=== PATIENT | female | born 1955 | race Caucasian/White ===

== ENCOUNTER 2020-09-06 17:00 | Outpatient (RCR) | payer OTHER, MEDICARE, SELFPAY | END 2020-09-29 10:42 | disposition home or self-care (01) | LOC: HO.PTCHIC 17:00 | PROVIDERS: PCP Internal Medicine; Visit Provider Internal Medicine | DX: M25.512 Pain in left shoulder (principal) | CPT/HCPCS: 97110; 97140 ==

== ENCOUNTER 2020-11-11 09:55 | Outpatient (REF) | payer MEDICARE, SELFPAY | END 2020-11-11 09:56 | disposition home or self-care (01) | LOC: HO.LAB 09:55 | PROVIDERS: Visit Provider Internal Medicine | DX: Z20.822 Contact with and (suspected) exposure to COVID-19 (principal) | CPT/HCPCS: C9803; U0003 ==

== ENCOUNTER 2021-08-18 10:48 | Outpatient (REF) | payer MEDICARE, SELFPAY ==
--- NOTE | ~2021-08-18 | MM_ITS ---
EXAMINATION: MM SCREENING DIGITAL BREAST TOMOSYNTHESIS, BILATERAL CLINICAL INFORMATION: Screening. Asymptomatic. The lifetime risk of breast cancer based on the Tyrer-Cuzick Model is 3%. COMPARISON: Mammography: 09/29/2019, 02/25/2018, 04/02/2016 TECHNIQUE: Digital breast tomosynthesis is performed in both the craniocaudal and mediolateral oblique views along with computer-aided detection (CAD). Synthesized 2D images are generated from the tomosynthesis. Additional right CC view is provided. FINDINGS: There are scattered areas of fibroglandular density (ACR BI-RADS breast composition Category b). There are no significant masses, abnormal calcifications, or other abnormalities. There are scattered bilateral ductal secretory calcifications again noted. The axilla and skin contours are unremarkable. MM/MM tomosynthesis screening BI IMPRESSION: No mammographic evidence of malignancy. ASSESSMENT: BI-RADS 2: Benign RECOMMENDATION: Routine annual mammography screening. This patient's information was entered into a reminder system with a target due date for their next mammogram.
== END 2021-08-18 10:49 | disposition home or self-care (01) ==
LOC: HO.MAMMO 10:48
PROVIDERS: Visit Provider Advanced Practice Midwife
DX: Z12.31 Encounter for screening mammogram for malignant neoplasm of breast (principal)
CPT/HCPCS: 77063; 77067

== ENCOUNTER 2021-08-27 15:33 | Outpatient (REF) | payer MEDICARE, SELFPAY | END 2021-08-27 15:34 | disposition home or self-care (01) | LOC: HO.LAB 15:33 | PROVIDERS: Visit Provider Internal Medicine | DX: Z20.822 Contact with and (suspected) exposure to COVID-19 (principal) | CPT/HCPCS: C9803; U0003; U0005 ==

== ENCOUNTER 2022-07-19 08:16 | Outpatient (REF) | payer MEDICARE, SELFPAY ==
--- NOTE | ~2022-07-19 | XR_ITS ---
EXAMINATION: XR LUMBOSACRAL SPINE CLINICAL INFORMATION: Lower back pain. COMPARISON: None TECHNIQUE: Three views of the lumbosacral spine. FINDINGS: Reverse S-shaped scoliotic curvature of the thoracolumbar spine. The lumbar lordosis is maintained. No acute fracture or subluxation. No loss of vertebral body height. Multilevel loss of intervertebral disc height with endplate osteophytes and endplate sclerosis, most severe within the lower thoracic and upper lumbar spine. Multilevel bilateral facet arthropathy. No concerning lytic or blastic osseous lesion. Phleboliths within the pelvis. Partially visualized Lap-Band and access port. XR/XR lumbar spine 2-3V IMPRESSION: Reverse S-shaped scoliotic curvature of the thoracolumbar spine. Prominent multilevel degenerative disc disease and bilateral facet arthropathy throughout the visualized thoracolumbar spine.
[2022-07-19 08:30] LABS: MANUAL DIFF FLAG NO
[2022-07-19 08:51] LABS: Basophils Absolute Auto 0.1 X10*3/uL (0.0-0.2); Basophils Percent Auto 0.7 % (0-2); Eosinophils Absolute Auto 0.5 X10*3/uL (0.0-0.4); Hematocrit 34.3 % (37.0-47.0); Hemoglobin 10.6 g/dl (12.0-16.0); Imm Gran Abs Auto 0.04 X10*3/uL (0.00-0.03); Imm Gran Pct Auto 0.5 % (0.0-0.4); Lymphocytes Absolute Auto 1.9 X10*3/uL (1.2-4.9); Lymphocytes Percent Auto 22.6 % (20-40); Mean Corpuscular HGB Conc 30.9 g/dl (31.0-35.0); Mean Corpuscular Hemoglobin 25.4 pg (27.0-33.0); Mean Corpuscular Volume 82.3 fL (80.0-98.0); Mean Platelet Volume 9.8 fL (9.4-12.3); Monocytes Absolute Auto 0.7 X10*3/uL (0.1-1.2); Monocytes Percent Auto 8.5 % (2-11); Neutrophils Absolute Auto 5.1 x10*3/uL (2.0-8.3); Neutrophils Percent Auto 61.7 % (45-73); Platelet Count 360 X10*3/uL (160-400); Red Blood Count 4.17 X10*6/uL (4.20-5.50); Red Cell Distribution Width 15.2 % (11.0-16.0); White Blood Count 8.2 X10*3/uL (4.8-10.8)
[2022-07-19 09:23] LABS: Alanine Aminotransferase 17 U/L (0-31); Albumin Level 4.1 g/dL (3.5-5.0); Alkaline Phosphatase 70 U/L (39-117); Anion Gap 17 (12-20); Aspartate Amino Transferase 16 U/L (5-31); Bilirubin Total 0.3 mg/dL (0.0-1.0); Blood Urea Nitrogen 21 mg/dL (9-16); Calcium 9.6 mg/dL (8.4-10.2); Carbon Dioxide 23 mmol/L (22-29); Chloride 104 mmol/L (96-108); Cholesterol 141 mg/dL; Estimated Glomerular Filt Rate 50; Glucose Random 120 mg/dL (60-115); HDL Cholesterol 37 mg/dL; LDL Cholesterol Calculated 76 mg/dl; Potassium 4.9 mmol/L (3.3-5.1); Sodium 139 mmol/L (135-145); Total Protein 7.2 g/dL (6.5-8.0); Triglycerides 144 mg/dL
[2022-07-19 09:44] LABS: Thyroid Stimulating Hormone 1.15 uIU/mL (0.32-4.0)
[2022-07-19 14:25] LABS: Creatinine Urine 132.58 mg/dL; Microalbum/Creatinine Ratio Ur 24.8 ug/mg cr
== END 2022-07-19 08:17 | disposition home or self-care (01) ==
LOC: HO.LAB 08:16
PROVIDERS: PCP Internal Medicine; Visit Provider Internal Medicine
DX: E11.9 Type 2 diabetes mellitus without complications (principal); E78.00 Pure hypercholesterolemia, unspecified; J45.20 Mild intermittent asthma, uncomplicated; M54.50 Low back pain, unspecified
CPT/HCPCS: 36415; 72100; 80053; 80061; 82043; 84443; 85025

== ENCOUNTER → 2022-10-08 14:47 | Outpatient (BNVA) | payer MEDICARE, SELFPAY | PROVIDERS: PCP Internal Medicine; Visit Provider Nurse Practitioner | DX: Z01.818 Encounter for other preprocedural examination (principal); N18.31 Chronic kidney disease, stage 3a; G47.33 Obstructive sleep apnea (adult) (pediatric) | CPT/HCPCS: 99202 ==

== ENCOUNTER 2022-10-17 16:00 | Outpatient (RCR) | payer MEDICARE, SELFPAY | END 2022-11-18 16:00 | disposition home or self-care (01) | LOC: HO.PTCHIC 16:00 | PROVIDERS: PCP Internal Medicine; Visit Provider Internal Medicine | DX: M54.50 Low back pain, unspecified (principal) | CPT/HCPCS: 97110; 97162; 97530 ==

== ENCOUNTER 2022-12-17 07:43 | Outpatient (REF) | payer MEDICARE, SELFPAY ==
--- NOTE | ~2022-12-17 | MM_ITS ---
EXAMINATION: MM SCREENING DIGITAL BREAST TOMOSYNTHESIS, BILATERAL CLINICAL INFORMATION: Screening. Asymptomatic. The lifetime risk of breast cancer based on the Tyrer-Cuzick Model is 3.0%. COMPARISON: Mammography: August 18, 2021 and studies dating back to February 27, 2015 TECHNIQUE: Digital breast tomosynthesis is performed in both the craniocaudal and mediolateral oblique views along with computer-aided detection (CAD). Synthesized 2D images are generated from the tomosynthesis. FINDINGS: There are scattered areas of fibroglandular density (ACR BI-RADS breast composition Category b). There are no significant masses, abnormal calcifications, or other abnormalities. MM/MM tomosynthesis screening BI IMPRESSION: No significant changes ASSESSMENT: BI-RADS 1: Negative RECOMMENDATION: Routine annual mammography screening. This patient's information was entered into a reminder system with a target due date for their next mammogram.
== END 2022-12-17 07:44 | disposition home or self-care (01) ==
LOC: HO.MAMMO 07:43
PROVIDERS: PCP Internal Medicine; Visit Provider Advanced Practice Midwife
DX: Z12.31 Encounter for screening mammogram for malignant neoplasm of breast (principal)
CPT/HCPCS: 77063; 77067

== ENCOUNTER 2023-02-03 09:56 | Day surgery (SDC) | payer MEDICARE, SELFPAY ==
[2023-01-29 14:55] VITALS: BMI 38.0
[2023-02-03] MEDS: Lactated Ringers 1,000 ML 50 ML IVCONT (10:03)
--- NOTE | 2023-02-03 10:18 | MHC.SHP ---
Pre-Procedural Eval Section A Date of Service: 02/03/23 The patient is an INPATIENT: No The History & Physical has been completed within 30 days and I have reviewed it.: No Section B Chief Complaint: screening Relevant Family History (Specify if Yes): No Relevant Social History: Tobacco Use ( former smoker) Present Medications: see Short Stay Collaborative assessment Medical History: Significant History (Obesity RAMIN NIDDM Asthma High cholesterol Decreased GFR Depression) History of Previous Operations: Relevant previous surgery/procedure and date(s) (Cholecystectomy Lap band surgery Colonoscopyo Tonsillectomy) Allergies: Allergies Allergy/AdvReac Type Severity Reaction Status Date / Time cephalexin [Keflex] Allergy Intermediate Rash Verified 02/03/23 10:03 ciprofloxacin [From CIPRO] Allergy Intermediate RASH Verified 02/03/23 10:03 Review of Systems Sugical H&P ROS: Negative: Constitution, Cardiovascular, Respiratory and Gastrointestinal Exam Surgical H&P Exam: Normal: Heart, Normal: Lungs, Normal: Extremities and Normal: Abdomen Plan Diagnosis/Plan: Unchanged I have reviewed the history and physical and performed a pertinent physical examination on my patient. No changes have occurred unless specified. Time Spent With Patient Time: Total time managing care of this patient today ____ minutes.
[2023-02-03 10:28] LABS: Glucose, Whole Blood 177 mg/dL (60-115)
[2023-02-03 10:32] VITALS: BP 150/82; PULSE 88; RESP 18; TEMP 36.6; O2SAT 96
--- NOTE | 2023-02-03 10:32 | HO.ANESPROP2 ---
[facility] Active Problems Active Problems: All Active Problems (Updated 01/29/23 @ 14:55 by Judi Vanegas RN) RAMIN (obstructive sleep apnea) (Acute) Diabetes (Acute) Asthma (Acute) High cholesterol (Acute) Depression (Acute) Chronic low back pain (Acute) Overactive bladder (Acute) Chronic kidney disease (CKD) stage G3a/A1, moderately decreased glomerular filtration rate (GFR) between 45-59 mL/min/1.73 square meter and albuminuria creatinine ratio less than 30 mg/g (Acute) Pre-op examination (Acute) Past Medical History Medical History Asthma Back pain Chronic renal insufficiency Diabetes Elevated cholesterol HTN (hypertension) Sleep apnea Functional capacity: independent ambulation Patient : No Surgical History Surgical History H/O colonoscopy History of cholecystectomy Hx of laparoscopic gastric banding Hx of tonsillectomy Social History Social History Do you presently have visiting nurse or other home services: No Alcohol intake: current Alcohol intake frequency: does not drink Patient Tobacco Use Status: Former Tobacco user Quit Date: age 37 Tobacco use type: Cigarette Years Smoked: 15 Use of substances other than those prescribed or required for medical reasons: Yes Substance Use Frequency: Daily Have you been hit, kicked, punched, or otherwise hurt by someone within the past year? If so, by whom?: No Are you DNR?: No Advance Directives: No (states daughter is HCP but form is at PCP office) Advance Directives Information Provided: Yes (brochure mailed) Advance Directives on File: No Recently lost weight without trying: No Eating poorly because of decreased appetite: No Nutrition Risks: No Nutritional Risk Poor oral hygiene: No (upper flipper partial-can be loose-may leave at home) Meds Allergies Allergy/AdvReac Type Severity Reaction Status Date / Time cephalexin [Keflex] Allergy Intermediate Rash Verified 02/03/23 10:03 ciprofloxacin [From CIPRO] Allergy Intermediate RASH Verified 02/03/23 10:03 Active Medications: Current Medications Lactated Ringer's (Lr) 1,000 mls @ 50 mls/hr IVCONT .Q20H VANIA Last Admin: 03/27/23 10:03 Dose: 50 mls/hr Home Medications Medication Instructions Recorded Confirmed Last Taken Type aspirin 81 mg tablet,delayed 81 mg PO BEDTIME 10/08/22 01/29/23 Unknown History release atorvastatin 40 mg tablet 40 mg PO BEDTIME 10/08/22 01/29/23 Unknown History cholecalciferol (vitamin D3) 50 50 mcg PO QAM 10/08/22 01/29/23 Unknown History mcg (2,000 unit) capsule ferrous sulfate 325 mg (65 mg 325 mg PO Q OTHER DAY 10/08/22 01/29/23 Unknown History iron) tablet (FeroSul) gabapentin 300 mg capsule 300 mg PO BEDTIME 10/08/22 01/29/23 Unknown History insulin glargine 100 unit/mL (3 32 unit subcut BEDTIME 10/08/22 01/29/23 Unknown History mL) subcutaneous pen (Lantus Solostar U-100 Insulin) lisinopril 5 mg tablet 5 mg PO QAM 10/08/22 01/29/23 Unknown History montelukast 10 mg tablet 10 mg PO BEDTIME 10/08/22 01/29/23 Unknown History omeprazole 20 mg capsule,delayed 20 mg PO QAM 10/08/22 01/29/23 Unknown History release oxybutynin chloride 5 mg tablet 5 mg PO QAM 10/08/22 01/29/23 Unknown History sertraline 50 mg tablet 50 mg PO QPM 10/08/22 01/29/23 Unknown History Exam Exam Date and Time: February 03, 2023 1032 Height,Weight and Vital Signs: Height 4 ft 9.5 in Weight 81 kg Pertinent Lab Results Pertinent Lab Results: Laboratory Tests 02/03/23 10:23 POC Glucose 177 H Airway Mallampati Class: III TM Dist: >3cm Neck ROM: Full Heart: RRR Lungs: CTA Assessment and Plan Final Anesthetic Review NPO: Yes ASA Class: III Final Preanesthetic Review: Meds/Allgs Chart Reviewed, Consent Obtained/Reviewed and Anes Risks/Benef Reviewed Patient Risk: Intermediate Procedure Risk: Low Anesthetic Plan Anesthetic Plan: MAC: Disposition: Standard PACU
--- NOTE | 2023-02-03 11:24 | PM.OP ---
Brief Operative Note Date of Service: 02/03/23 Pre-op diagnosis: colon cancer screening Post-op diagnosis: other ( colon polyps, diverticulosis) Procedure: COLONOSCOPY TILL CECUM WITH BIOPSIES, SNARE POLYPECTOMY, SUBMUCOSAL INJECTION AND HEMOCLIP PLACEMENT Surgeon: Loida Chapa MD Anesthesia: MAC Was an Loss Prevention Investigator used for this Procedure?: Yes Loss Prevention Investigator: Isaac Tomas Estimated blood loss (mL): 1 Pathology: other (A) Polyp Transverse Colon B) Polyp Sigmoid Colon 20cm) Condition: stable Disposition: PACU
--- NOTE | 2023-02-03 11:24 | W.PM.OPN ---
Operative Note Operative Note Date of Service: 02/03/23 Narrative: COLONOSCOPY TILL CECUM WITH BIOPSIES, SNARE POLYPECTOMY, SUBMUCOSAL INJECTION AND HEMOCLIP PLACEMENT Indication:? Colon cancer screening Endoscopist:? Loida Chapa MD Anesthesia Provider:?Dr Noland Anesthesia type:?MAC Consent: Indications for the procedure and potential complications of bleeding, perforation, reaction to medications and missed diagnosis were discussed with the patient and informed consent was obtained. Instrument: Olympus PCF H 190 L variable stiffness pediatric colonoscope Monitoring: Vital signs and clinical assessment, intermittent blood pressure monitoring, continuous EKG monitoring, Pulse oximetry and Carbon Dioxide monitoring were done throughout the procedure. Please see anesthesia flowsheet. Colon withdrawl time was 20 minutes. Procedure: The patient was placed in the left lateral decubitis position and pre-procedure medications were administered. After a digital rectal examination of the ano-rectum, the video colonoscope was inserted into the rectum and advanced through the colon to the cecum. The colonoscope was slowly withdrawn in a retrograde panoramic fashion and the colon mucosa was carefully examined including a retroflexed view of the rectum. Findings and interventions are described below. Procedure Difficulty: Without difficulty Findings: Terminal Ileum: Not evaluated Cecum: Normal Ascending Colon: Normal Transverse Colon: Three 12-20 mm sessile polyps - removed with a hot snare Descending Colon: moderate diverticulosis Sigmoid Colon: A 3 cms pedunculated polyp in the distal SC at 20 cms removed with a hot snare. Polypectomy site was closed with 1 hemoclip and marked by Sophia ink. Moderate diverticulosis Rectum: Normal Ano-rectum: Normal Colon preparation: Good Impression and Post Procedure Diagnosis: Colonoscopy Findings: Three medium sized and one large polyps removed Moderate diverticulosis seen in the left colon Plan: Await pathology results Patient has an appointment on 02/18/23 in the [facility] with Kate Colorado NP. Repeat Colonoscopy interval based on path results - in 1 year if polyps are adenomatous and 10 years if polyps are hyperplastic. Above findings were reviewed with the patient and colon polyps and diverticulosis handouts were given in the discharge area
[2023-02-03 12:21] VITALS: BP 113/68; PULSE 80; RESP 16; TEMP 36.3; O2SAT 99
[2023-02-03 12:36] VITALS: BP 104/77; PULSE 72; RESP 16; TEMP 36.3; O2SAT 99
--- NOTE | 2023-02-03 12:50 | HO.POSTANES ---
Post Anesthesia Evaluation Post Anesthesia Evaluation Vital Signs: Vital Signs Temp Pulse Resp BP Pulse Ox O2 Del Method 02/03/23 12:36 97.4 F 72 16 104/77 99 Room Air 02/03/23 12:21 97.4 F 80 16 113/68 99 Room Air 02/03/23 10:32 97.8 F 88 18 150/82 H 96 Room Air Anesthesia: Monitored Mental Status: Awake Nausea/Vomiting: None Hydration: Adequate Anesthesia-Related Issues: No Anes. Related Issues
== END 2023-02-03 14:16 | disposition home or self-care (01) ==
PROVIDERS: PCP Internal Medicine; Visit Provider Internal Medicine Gastroenterology
PROC: 0DJD8ZZ Inspection of Lower Intestinal Tract, Via Natural or Artificial Opening Endoscopic (ICD-10-PCS; CPT 45378; principal; 2023-02-03 11:00)
DX: Z12.11 Encounter for screening for malignant neoplasm of colon (principal); D12.3 Benign neoplasm of transverse colon; D12.5 Benign neoplasm of sigmoid colon; K57.30 Diverticulosis of large intestine without perforation or abscess without bleeding; G47.33 Obstructive sleep apnea (adult) (pediatric); J45.909 Unspecified asthma, uncomplicated; E78.00 Pure hypercholesterolemia, unspecified; E66.9 Obesity, unspecified; Z68.38 Body mass index [BMI] 38.0-38.9, adult; Z98.84 Bariatric surgery status; E11.22 Type 2 diabetes mellitus with diabetic chronic kidney disease; I12.9 Hypertensive chronic kidney disease with stage 1 through stage 4 chronic kidney disease, or unspecified chronic kidney disease; N18.31 Chronic kidney disease, stage 3a; Z79.4 Long term (current) use of insulin; Z79.82 Long term (current) use of aspirin; Z79.899 Other long term (current) drug therapy; Z99.89 Dependence on other enabling machines and devices; Z88.1 Allergy status to other antibiotic agents; Z90.49 Acquired absence of other specified parts of digestive tract; Z87.891 Personal history of nicotine dependence
CPT/HCPCS: 45385; 45381; 82947; 88305

== ENCOUNTER 2023-02-26 08:35 | Outpatient (REF) | payer MEDICARE, SELFPAY ==
[2023-02-26 09:00] LABS: MANUAL DIFF FLAG NO
[2023-02-26 09:18] LABS: Basophils Absolute Auto 0.1 X10*3/uL (0.0-0.2); Basophils Percent Auto 0.8 % (0-2); Eosinophils Absolute Auto 0.5 X10*3/uL (0.0-0.4); Eosinophils Percent Auto 6.4 % (0-4); Hematocrit 37.9 % (37.0-47.0); Hemoglobin 12.1 g/dl (12.0-16.0); Imm Gran Abs Auto 0.05 X10*3/uL (0.00-0.03); Imm Gran Pct Auto 0.7 % (0.0-0.4); Lymphocytes Absolute Auto 1.8 X10*3/uL (1.2-4.9); Lymphocytes Percent Auto 24.4 % (20-40); Mean Corpuscular HGB Conc 31.9 g/dl (31.0-35.0); Mean Corpuscular Hemoglobin 27.4 pg (27.0-33.0); Mean Corpuscular Volume 85.7 fL (80.0-98.0); Mean Platelet Volume 9.9 fL (9.4-12.3); Monocytes Absolute Auto 0.6 X10*3/uL (0.1-1.2); Monocytes Percent Auto 7.9 % (2-11); Neutrophils Absolute Auto 4.5 x10*3/uL (2.0-8.3); Neutrophils Percent Auto 59.8 % (45-73); Platelet Count 287 X10*3/uL (160-400); Red Blood Count 4.42 X10*6/uL (4.20-5.50); Red Cell Distribution Width 14.5 % (11.0-16.0); White Blood Count 7.5 X10*3/uL (4.8-10.8)
[2023-02-26 09:28] LABS: Estimated Average Glucose 200 mg/dL; Hemoglobin A1c % 8.6 %
[2023-02-26 09:53] LABS: Alanine Aminotransferase 19 U/L (0-31); Albumin Level 3.8 g/dL (3.5-5.0); Alkaline Phosphatase 86 U/L (39-117); Anion Gap 12 (12-20); Aspartate Amino Transferase 17 U/L (5-31); Bilirubin Total 0.3 mg/dL (0.0-1.0); Blood Urea Nitrogen 16 mg/dL (9-16); Calcium 9.2 mg/dL (8.4-10.2); Carbon Dioxide 27 mmol/L (22-29); Chloride 103 mmol/L (96-108); Estimated Glomerular Filt Rate 43; Glucose Random 183 mg/dL (60-115); Potassium 4.7 mmol/L (3.3-5.1); Sodium 137 mmol/L (135-145); Total Protein 6.8 g/dL (6.5-8.0)
[2023-02-26 13:34] LABS: Creatinine Urine 135.09 mg/dL; Microalbum/Creatinine Ratio Ur 34.7 ug/mg cr
== END 2023-02-26 08:36 | disposition home or self-care (01) ==
LOC: HO.LAB 08:35
PROVIDERS: PCP Internal Medicine; Visit Provider Internal Medicine
DX: E11.65 Type 2 diabetes mellitus with hyperglycemia (principal); Z79.4 Long term (current) use of insulin
CPT/HCPCS: 36415; 80053; 82043; 83036; 85025

== ENCOUNTER → 2023-03-05 15:01 | Outpatient (BNVA) | payer MEDICARE, SELFPAY | PROVIDERS: PCP Internal Medicine; Visit Provider Nurse Practitioner | DX: D36.9 Benign neoplasm, unspecified site (principal) | CPT/HCPCS: 99212 ==

== ENCOUNTER 2023-07-30 09:27 | Outpatient (REF) | payer MEDICARE, SELFPAY ==
[2023-07-30 14:25] LABS: MANUAL DIFF FLAG NO
[2023-07-30 14:37] LABS: Basophils Absolute Auto 0.1 X10*3/uL (0.0-0.2); Basophils Percent Auto 0.8 % (0-2); Eosinophils Absolute Auto 0.5 X10*3/uL (0.0-0.4); Eosinophils Percent Auto 6.4 % (0-4); Hematocrit 44.1 % (37.0-47.0); Hemoglobin 14.3 g/dl (12.0-16.0); Imm Gran Abs Auto 0.05 X10*3/uL (0.00-0.03); Imm Gran Pct Auto 0.6 % (0.0-0.4); Lymphocytes Absolute Auto 1.6 X10*3/uL (1.2-4.9); Lymphocytes Percent Auto 19.9 % (20-40); Mean Corpuscular HGB Conc 32.4 g/dl (31.0-35.0); Mean Corpuscular Hemoglobin 28.8 pg (27.0-33.0); Mean Corpuscular Volume 88.7 fL (80.0-98.0); Mean Platelet Volume 10.3 fL (9.4-12.3); Monocytes Absolute Auto 0.7 X10*3/uL (0.1-1.2); Monocytes Percent Auto 8.5 % (2-11); Neutrophils Percent Auto 63.8 % (45-73); Platelet Count 300 X10*3/uL (160-400); Red Blood Count 4.97 X10*6/uL (4.20-5.50); Red Cell Distribution Width 13.4 % (11.0-16.0); White Blood Count 7.8 X10*3/uL (4.8-10.8)
[2023-07-30 14:54] LABS: Alanine Aminotransferase 16 U/L (0-31); Alkaline Phosphatase 92 U/L (39-117); Anion Gap 12 (12-20); Aspartate Amino Transferase 18 U/L (5-31); Bilirubin Total 0.4 mg/dL (0.0-1.0); Blood Urea Nitrogen 18 mg/dL (9-16); Calcium 9.8 mg/dL (8.4-10.2); Carbon Dioxide 27 mmol/L (22-29); Chloride 106 mmol/L (96-108); Cholesterol 138 mg/dL (<200); Estimated Glomerular Filt Rate 50; Glucose Fasting 123 mg/dL (60-99); HDL Cholesterol 40 mg/dL (>40); LDL Cholesterol Calculated 77 mg/dL (<100); Potassium 4.4 mmol/L (3.3-5.1); Sodium 141 mmol/L (135-145); Total Protein 7.6 g/dL (6.5-8.0); Triglycerides 108 mg/dL (<150)
[2023-07-30 15:09] LABS: Creatinine Urine 73.82 mg/dL; Microalbum/Creatinine Ratio Ur 37.9 ug/mg cr (<30)
[2023-07-30 15:09] LABS: Thyroid Stimulating Hormone 1.08 uIU/mL (0.32-4.0)
== END 2023-07-30 09:28 | disposition home or self-care (01) ==
LOC: HO.CHCLDS 09:27
PROVIDERS: Visit Provider Internal Medicine
DX: E11.9 Type 2 diabetes mellitus without complications (principal); E78.00 Pure hypercholesterolemia, unspecified; J45.30 Mild persistent asthma, uncomplicated
CPT/HCPCS: 36415; 80053; 80061; 82043; 82570; 84443; 85025

== ENCOUNTER 2024-03-10 10:50 | Outpatient (REF) | payer MEDICARE, SELFPAY ==
[2024-03-10 15:08] LABS: Alanine Aminotransferase 17 U/L (0-31); Albumin Level 3.9 g/dL (3.5-5.0); Alkaline Phosphatase 72 U/L (39-117); Anion Gap 14 (12-20); Aspartate Amino Transferase 18 U/L (5-31); Bilirubin Total 0.5 mg/dL (0.0-1.0); Blood Urea Nitrogen 22 mg/dL (9-16); Calcium 9.3 mg/dL (8.4-10.2); Carbon Dioxide 26 mmol/L (22-29); Chloride 104 mmol/L (96-108); Estimated Glomerular Filt Rate 52; Glucose Fasting 98 mg/dL (60-99); Potassium 4.1 mmol/L (3.3-5.1); Sodium 140 mmol/L (135-145); Total Protein 7.4 g/dL (6.5-8.0)
== END 2024-03-10 10:51 | disposition home or self-care (01) ==
LOC: HO.CHCLDS 10:50
PROVIDERS: Visit Provider Internal Medicine
DX: N18.31 Chronic kidney disease, stage 3a (principal)
CPT/HCPCS: 36415; 80053

== ENCOUNTER 2024-03-29 11:05 | Outpatient (REF) | payer MEDICARE, SELFPAY ==
--- NOTE | ~2024-03-29 | XR_ITS ---
EXAMINATION: XR HIP, RIGHT CLINICAL INFORMATION: Osteoarthritis of the right hip COMPARISON: None available. TECHNIQUE: Two views of the right hip. FINDINGS: Minimal chondrocalcinosis no joint space narrowing. Surrounding bone unremarkable. Prominent arterial calcification. XR/XR hip RT min 2V IMPRESSION: 1. Minimal chondrocalcinosis. Otherwise No definite arthrosis 2. Calcific atherosclerotic disease.
== END 2024-03-29 11:06 | disposition home or self-care (01) ==
LOC: HO.XRAY 11:05
PROVIDERS: PCP Internal Medicine; Visit Provider Internal Medicine
DX: M54.50 Low back pain, unspecified (principal); M25.551 Pain in right hip
CPT/HCPCS: 73502

== ENCOUNTER 2024-04-16 07:25 | Day surgery (SDC) | payer MEDICARE, SELFPAY ==
--- NOTE | 2024-04-16 07:29 | MHC.SHP ---
Pre-Procedural Eval Section A - 24 Hr Update-Section A only Date of Service: 04/16/24 The patient is an INPATIENT: No The patient has been examined within 24 hours of the surgical procedure. The History & Physical has been completed within 30 days and I have reviewed it.: No Section B - Complete if H&P > 30 days Chief Complaint: Surveillance for colon polyps Relevant Family History (Specify if Yes): Yes Relevant Social History: Tobacco Use (Former smoker) Present Medications: see Short Stay Collaborative assessment Medical History: Significant History (Asthma Back pain Chronic renal insufficiency Diabetes Elevated cholesterol HTN (hypertension) Sleep apnea) History of Previous Operations: Relevant previous surgery/procedure and date(s) (H/O colonoscopy History of cholecystectomy Hx of laparoscopic gastric banding Hx of tonsillectomy) Allergies: Allergies Allergy/AdvReac Type Severity Reaction Status Date / Time cephalexin [Keflex] Allergy Intermediate Rash Verified 03/05/23 15:23 ciprofloxacin [From CIPRO] Allergy Intermediate RASH Verified 03/05/23 15:23 Review of Systems Sugical H&P ROS: Negative: Constitution, Cardiovascular, Respiratory and Gastrointestinal Exam Surgical H&P Exam: Normal: Heart, Normal: Lungs, Normal: Extremities and Normal: Abdomen Plan Diagnosis/Plan: Unchanged I have reviewed the history and physical and performed a pertinent physical examination on my patient. No changes have occurred unless specified. Time Spent With Patient Time: Total time managing care of this patient today ____ minutes.
[2024-04-16 07:35] VITALS: BMI 35.9
[2024-04-16] MEDS: Lactated Ringers 1,000 ML 100 ML IVCONT (07:43)
[2024-04-16 07:50] VITALS: BP 127/65; PULSE 80; RESP 18; TEMP 36.4; O2SAT 97
[2024-04-16 07:52] LABS: Glucose, Whole Blood 137 mg/dL (60-115)
--- NOTE | 2024-04-16 08:10 | P.CONAN_ITS ---
Documented by User: Alejandra Cabral NP 04/14/24 14:47 HPI - Anesthesia Eval Consult details Narrative: 69yo F for Colonoscopy PMFSH Active Problems Active Problems: All Active Problems Tubulovillous adenoma (Acute) RAMIN (obstructive sleep apnea) (Acute) Diabetes (Acute) Asthma (Acute) High cholesterol (Acute) Depression (Acute) Chronic low back pain (Acute) Overactive bladder (Acute) Chronic kidney disease (CKD) stage G3a/A1, moderately decreased glomerular filtration rate (GFR) between 45-59 mL/min/1.73 square meter and albuminuria creatinine ratio less than 30 mg/g (Acute) Pre-op examination (Acute) Past Medical History Medical History Asthma Back pain Chronic renal insufficiency Diabetes Elevated cholesterol HTN (hypertension) Sleep apnea Surgical History Surgical History H/O colonoscopy History of cholecystectomy Hx of laparoscopic gastric banding Hx of tonsillectomy Social History Social History Do you presently have visiting nurse or other home services: No Alcohol intake: current Alcohol intake frequency: does not drink Patient Tobacco Use Status: Former Tobacco user Tobacco use type: Cigarette Years Smoked: 15 Substance Use Frequency: Daily Are you DNR?: No Advance Directives: No Advance Directives Information Provided: Yes Nutrition Risks: No Nutritional Risk Meds Allergies Allergy/AdvReac Type Severity Reaction Status Date / Time cephalexin [Keflex] Allergy Intermediate Rash Verified 04/16/24 07:37 ciprofloxacin [From CIPRO] Allergy Intermediate RASH Verified 04/16/24 07:37 Home Medications ?Medication ?Instructions ?Recorded ?Confirmed ?Last Taken ?Type aspirin 81 mg tablet,delayed 81 mg PO BEDTIME 10/08/22 04/16/24 04/13/24 History release atorvastatin 40 mg tablet 40 mg PO BEDTIME 10/08/22 04/16/24 Unknown History cholecalciferol (vitamin D3) 50 50 mcg PO QAM 10/08/22 04/16/24 Unknown History mcg (2,000 unit) capsule ferrous sulfate 325 mg (65 mg 325 mg PO Q OTHER DAY 10/08/22 04/16/24 04/13/24 History iron) tablet (FeroSul) gabapentin 300 mg capsule 300 mg PO BEDTIME 10/08/22 04/16/24 Unknown History insulin glargine 100 unit/mL (3 32 unit subcut BEDTIME 10/08/22 04/16/24 Unknown History mL) subcutaneous pen (Lantus Solostar U-100 Insulin) lisinopril 5 mg tablet 5 mg PO QAM 10/08/22 04/16/24 Unknown History montelukast 10 mg tablet 10 mg PO BEDTIME 10/08/22 04/16/24 Unknown History omeprazole 20 mg capsule,delayed 20 mg PO QAM 10/08/22 04/16/24 Unknown History release oxybutynin chloride 5 mg tablet 5 mg PO QAM 10/08/22 04/16/24 Unknown History sertraline 50 mg tablet 50 mg PO QPM 10/08/22 04/16/24 Unknown History empagliflozin 10 mg tablet 10 mg PO DAILY 04/16/24 04/16/24 04/13/24 History (Jardiance) Exam Pertinent Lab Results Pertinent Lab Results: Laboratory Tests 07/30/23 03/10/24 09:12 10:54 WBC 7.8 Hgb 14.3 Hct 44.1 Plt Count 300 Sodium 140 Potassium 4.1 Chloride 104 Carbon Dioxide 26 BUN 22 H Creatinine 1.05 Assessment and Plan Assessment Anesthesia Assessment: Chart Reviewed Documented by User: Jerri Harp DO 04/16/24 08:15 HPI - Anesthesia Eval Anesthesia Pre-Procedure Meds Is the patient on any of the following meds?: SGLT2 Inhib If yes to any meds - educate patient: Pt education - increased risk of aspiration and/or euvolemic DKA [facility] Past Medical History Medical History Asthma Back pain Chronic renal insufficiency Diabetes Elevated cholesterol HTN (hypertension) Sleep apnea Family History Family history of problems with anesthesia: No Surgical History Surgical History H/O colonoscopy History of cholecystectomy Hx of laparoscopic gastric banding Hx of tonsillectomy History of Problems with Anesthesia: No Social History Social History Do you presently have visiting nurse or other home services: No Alcohol intake: current Alcohol intake frequency: does not drink Patient Tobacco Use Status: Former Tobacco user Tobacco use type: Cigarette Years Smoked: 15 Substance Use Frequency: Daily Are you DNR?: No Advance Directives: No Advance Directives Information Provided: Yes Nutrition Risks: No Nutritional Risk Meds Allergies Allergy/AdvReac Type Severity Reaction Status Date / Time cephalexin [Keflex] Allergy Intermediate Rash Verified 04/16/24 07:37 ciprofloxacin [From CIPRO] Allergy Intermediate RASH Verified 04/16/24 07:37 Home Medications ?Medication ?Instructions ?Recorded ?Confirmed ?Last Taken ?Type aspirin 81 mg tablet,delayed 81 mg PO BEDTIME 10/08/22 04/16/24 04/13/24 History release atorvastatin 40 mg tablet 40 mg PO BEDTIME 10/08/22 04/16/24 Unknown History cholecalciferol (vitamin D3) 50 50 mcg PO QAM 10/08/22 04/16/24 Unknown History mcg (2,000 unit) capsule ferrous sulfate 325 mg (65 mg 325 mg PO Q OTHER DAY 10/08/22 04/16/24 04/13/24 History iron) tablet (FeroSul) gabapentin 300 mg capsule 300 mg PO BEDTIME 10/08/22 04/16/24 Unknown History insulin glargine 100 unit/mL (3 32 unit subcut BEDTIME 10/08/22 04/16/24 Unknown History mL) subcutaneous pen (Lantus Solostar U-100 Insulin) lisinopril 5 mg tablet 5 mg PO QAM 10/08/22 04/16/24 Unknown History montelukast 10 mg tablet 10 mg PO BEDTIME 10/08/22 04/16/24 Unknown History omeprazole 20 mg capsule,delayed 20 mg PO QAM 10/08/22 04/16/24 Unknown History release oxybutynin chloride 5 mg tablet 5 mg PO QAM 10/08/22 04/16/24 Unknown History sertraline 50 mg tablet 50 mg PO QPM 10/08/22 04/16/24 Unknown History empagliflozin 10 mg tablet 10 mg PO DAILY 04/16/24 04/16/24 04/13/24 History (Jardiance) Exam Exam Date and Time: April 16, 202411 Height,Weight and Vital Signs: Height 4 ft 10 in Weight 78.018 kg Vital Signs Temperature 97.6 F 04/16/24 07:50 Pulse Rate 80 04/16/24 07:50 Respiratory Rate 18 04/16/24 07:50 Blood Pressure 127/65 04/16/24 07:50 Pulse Oximetry 97 04/16/24 07:50 Oxygen Delivery Method Room Air 04/16/24 07:50 Temperature 97.6 F 04/16/24 07:50 Pulse Rate 80 04/16/24 07:50 Respiratory Rate 18 04/16/24 07:50 Blood Pressure 127/65 04/16/24 07:50 Pulse Oximetry 97 04/16/24 07:50 Oxygen Delivery Method Room Air 04/16/24 07:50 Airway Mallampati Class: II TM Dist: >3cm Neck ROM: Full Partial: Upper Heart: S1S2 Lungs: CTAB Assessment and Plan Assessment Anesthesia Assessment: Anesthesia Plan Discussed and Chart Reviewed Final Anesthetic Review Family History of Problems with Anesthesia: No History of Problems with Anesthesia: No NPO: Yes ASA Class: III Final Preanesthetic Review: No Changes in Pt Med Stat, Meds/Allgs Chart Reviewed, Consent Obtained/Reviewed and Anes Risks/Benef Reviewed Patient Risk: Intermediate Procedure Risk: Low Anesthetic Plan Anesthetic Plan: MAC: and Agree w/ Assess. and Plan Disposition: Standard PACU
[2024-04-16 09:18] VITALS: BP 130/60; PULSE 65; RESP 18; TEMP 36.6; O2SAT 98
--- NOTE | 2024-04-16 09:20 | P.OPN-COLO_ITS ---
Colonoscopy Operative Note Operative Note Date of Service: 04/16/24 Narrative: COLONOSCOPY TILL CECUM WITH BIOPSIES AND SNARE POLYPECTOMY Pre-op diagnosis: SURVEILLANCE FOR COLON POLYPS. Post-op diagnosis:? Colon polyps, Diverticulosis Endoscopist:? Loida Chapa MD Anesthesia:?MAC Consent: Indications for the procedure and potential complications of bleeding, perforation, reaction to medications and missed diagnosis were discussed with the patient and informed consent was obtained. Instrument: Olympus PCF H 190 L variable stiffness pediatric colonoscope Monitoring: Vital signs and clinical assessment, intermittent blood pressure monitoring, continuous EKG monitoring, Pulse oximetry and Carbon Dioxide monitoring were done throughout the procedure. Please see anesthesia flowsheet. Colon withdrawl time was 18 minutes. Procedure: The patient was placed in the left lateral decubitis position and pre-procedure medications were administered. After a digital rectal examination of the ano-rectum, the video colonoscope was inserted into the rectum and advanced through the colon to the cecum. The colonoscope was slowly withdrawn in a retrograde panoramic fashion and the colon mucosa was carefully examined including a retroflexed view of the rectum. Findings and interventions are described below. Procedure Difficulty: without difficulty Findings: Terminal Ileum: Not evaluated Cecum: A 12 mm sessile polyp - removed with a hot snare Ascending Colon: Normal Transverse Colon: Normal Descending Colon: Moderate diverticulosis Sigmoid Colon: Polypectomy site visualized at 20 cms - showed edematous folds and no recurrent polyp - biopsies were obtained. Moderate diverticulosis Rectum: Normal Ano-rectum: Normal Colon preparation: Good after some irrigation. Anderson Bowel Preparation Scale Right colon; 2 Transverse colon: 2 Left colon; 2 (0 = Unprepared colon segment with mucosa not seen due to solid stool that cannot be cleared. 1 = Portion of mucosa of the colon segment seen, but other areas of the colon segment not well seen due to staining, residual stool and/or opaque liquid. 2 = Minor amount of residual staining, small fragments of stool and/or opaque liquid, but mucosa of colon segment seen well. 3 = Entire mucosa of colon segment seen well with no residual staining, small fragments of stool or opaque liquid) Impression and Post Procedure Diagnosis: Colonoscopy Findings: One medium sized polyp was removed Moderate diverticulosis seen in the left colon Plan: Pt has a FU appointment on 04/30/24 with Kate Colorado NP. Repeat Colonoscopy in 3-5 years if polyps are adenomatous and due to a hx of multiple adenomatous polyps. Above findings were reviewed with the patient and relevant handouts were given and the discharge area.
[2024-04-16 09:33] VITALS: BP 144/92; PULSE 72; RESP 18; O2SAT 98
[2024-04-16 09:51] VITALS: BP 156/72; PULSE 60; RESP 16; TEMP 36.3; O2SAT 98
== END 2024-04-16 10:20 | disposition home or self-care (01) ==
PROVIDERS: PCP Internal Medicine; Visit Provider Internal Medicine Gastroenterology
PROC: 0DJD8ZZ Inspection of Lower Intestinal Tract, Via Natural or Artificial Opening Endoscopic (ICD-10-PCS; CPT 45378; principal; 2024-04-16 08:30)
DX: Z12.11 Encounter for screening for malignant neoplasm of colon (principal); K63.5 Polyp of colon; K57.30 Diverticulosis of large intestine without perforation or abscess without bleeding; Z86.010 Personal history of colon polyps; E11.9 Type 2 diabetes mellitus without complications; I10 Essential (primary) hypertension; J45.909 Unspecified asthma, uncomplicated; Z88.1 Allergy status to other antibiotic agents
CPT/HCPCS: 45385; 45380; 82947; 88305; J2704

== ENCOUNTER → 2024-04-16 07:25 | Outpatient (BNV) | payer MEDICARE, SELFPAY | PROVIDERS: PCP Internal Medicine; Visit Provider Internal Medicine Gastroenterology | DX: Z12.11 Encounter for screening for malignant neoplasm of colon (principal); Z86.010 Personal history of colon polyps; K63.5 Polyp of colon; K57.90 Diverticulosis of intestine, part unspecified, without perforation or abscess without bleeding; K63.89 Other specified diseases of intestine | CPT/HCPCS: 45380; 45385 ==

== ENCOUNTER 2024-04-26 09:36 | Outpatient (AMB) | payer MEDICARE, SELFPAY ==
--- NOTE | 2024-04-26 09:48 | A.OFFVIS_ITS ---
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 Intake Note: Marina a 69 year old female who presents today as a new patient for an evaluation of right hip. Patient reports her pain has been present for over a year and has been getting worse. Denies injury. Difficulty with laying on her right side. Her pain is located in at the posterior aspect of hip that radiates down her leg and into her back. She would like to discuss a cortisone injection. No previous tx. Allergies cephalexin [Keflex] Allergy (Intermediate, Verified 04/26/24 09:49) Rash ciprofloxacin [From CIPRO] Allergy (Intermediate, Verified 04/26/24 09:49) RASH Medication List - Last Reconciled 04/26/24 by Eufemia Gilbert PA-C aspirin 81 mg PO BEDTIME atorvastatin 40 mg PO BEDTIME cholecalciferol (vitamin D3) 50 mcg PO QAM empagliflozin (Jardiance) 10 mg PO DAILY ferrous sulfate (FeroSul) 325 mg PO Q OTHER DAY gabapentin 300 mg PO BEDTIME insulin glargine (Lantus Solostar U-100 Insulin) 32 units subcut BEDTIME lisinopril 5 mg PO QAM montelukast 10 mg PO BEDTIME omeprazole 20 mg PO QAM oxybutynin chloride 5 mg PO QAM sertraline 50 mg PO QPM simethicone (Gas Relief (simethicone)) 125 mg PO ONCE HPI HPI FR[employer]IVER-RT Hip pain-interested in cortisone inj.: Details: 69-year-old female who presents to the office today for an evaluation of right hip pain for about a year. She was seen by her PCP who referred her to our office. She states she has worsening intermittent pain at the posterior aspect of her hip that radiates down to her leg and up into her back. Her pain is aggravated with movement and laying on her sides. She also experiences numbness and tingling in her hip. She denies any groin pain. She finds no relief with OTC pain medication. She denies any injury and has not had any treatment in the past. She is interested in having a cortisone injection. She also reports she has constant locking in her right middle finger for about 4 months. She has a history of diabetes. Her last A1c was 6.8 or 7%. [facility] Medical History Asthma Back pain Chronic renal insufficiency Diabetes Elevated cholesterol HTN (hypertension) Sleep apnea Surgical History H/O colonoscopy Hx of tonsillectomy Hx of laparoscopic gastric banding History of cholecystectomy Social History Do you presently have visiting nurse or other home services: No Alcohol intake: current Alcohol intake frequency: does not drink Patient Tobacco Use Status: Former Tobacco user Tobacco use type: Cigarette Years Smoked: 15 Review of Systems Const All systems reviewed & are unremarkable except as noted in HPI and below Physical Exam Const General: cooperative, healthy appearing, comfortable, no acute distress, well developed and alert Orientation/consciousness: patient oriented x3 HEENT Head: Yes normal to inspection, Yes normocephalic and Yes atraumatic Eyes General: appearance normal, both eyes and all related structures Resp Effort & Inspection: normal respiratory effort and able to speak in complete sentences Cardio Rate: regular rate Peripheral pulses: Peripheral pulses 2+ throughout GI Palpation (GI): Soft to palpation Skin Lesions: no lesions Rashes: no rashes Neuro General: patient oriented x3 Extrem Other: Right hip: Normal to inspection. No pain with ROM of the hip. Pain along the greater trochanter. No pain with hip flexion or abduction. Positive tenderness along the SI joint, Positive SLR. NVI. Right middle finger: Tender nodule along the A1 faizan with active catching and locking. NVI. Results Reviewed Results Reviewed: xrays of the right hip obtained previously which show mild oa Assessment & Plan Assessment & Plan (1) Tendinopathy of right gluteus medius: Code(s): M67.951 - Unspecified disorder of synovium and tendon, right thigh Category: Medical (2) Trochanteric bursitis, right hip: Code(s): M70.61 - Trochanteric bursitis, right hip Category: Medical (3) Chronic right SI joint pain: Code(s): M53.3 - Sacrococcygeal disorders, not elsewhere classified; G89.29 - Other chronic pain Category: Medical (4) Trigger finger, right middle finger: Code(s): M65.331 - Trigger finger, right middle finger Category: Medical Plan We discussed options today, which include steroid injection. The patient did consent to move forward with the right hip trochanteric bursa injection, which was tolerated well. I recommended rest, ice, and elevation and OTC anti- inflammatories as needed for discomfort. If symptoms persist or worsen over the next 6-8 weeks, patient will contact the office, otherwise follow-up as needed. We discussed options which include conservative vs operative treatment. Since the patient has been symptomatic for several months and it is impacting their daily life, the decision was made to undergo Trigger release. We discussed risk, benefits and alternatives. Risk including but not limited to infection, stiffness, ongoing trigger or catching. She does understand all this and would like to proceed with right middle finger trigger release with Dr. Rondon. She will be booked accordingly. Patient Instructions: Scribed for Eufemia Gilbert PA-C, by Jaciel Dailey medical sales, on 04/26/2024 at 9:45 AM EST.? I, Eufemia Gilbert PA-C, have personally reviewed and agree with the information entered by the scribe. Coding Level of Care Code New Pt Level 4 (31360) Diagnoses Tendinopathy of right gluteus medius M67.951 Trochanteric bursitis, right hip M70.61 Chronic right SI joint pain M53.3; G89.29 Trigger finger, right middle finger M65.331
== END 2024-04-26 10:39 | disposition home or self-care (01) ==
PROVIDERS: PCP Internal Medicine; Visit Provider Physician Assistant
DX: M67.951 Unspecified disorder of synovium and tendon, right thigh (principal); M70.61 Trochanteric bursitis, right hip; M53.3 Sacrococcygeal disorders, not elsewhere classified; G89.29 Other chronic pain; M65.331 Trigger finger, right middle finger
CPT/HCPCS: 20610; 99204

== ENCOUNTER → 2024-04-26 09:36 | Outpatient (BNVA) | payer MEDICARE, SELFPAY | PROVIDERS: PCP Internal Medicine; Visit Provider Physician Assistant | DX: M67.951 Unspecified disorder of synovium and tendon, right thigh (principal); M70.61 Trochanteric bursitis, right hip; M53.3 Sacrococcygeal disorders, not elsewhere classified; M65.331 Trigger finger, right middle finger; G89.29 Other chronic pain | CPT/HCPCS: 20610; 99202; J1010 ==

== ENCOUNTER 2024-06-09 13:06 | Outpatient (AMB) | payer MEDICARE, SELFPAY ==
--- NOTE | 2024-06-09 13:08 | MHC.OFFVIS ---
Vital Signs 06/09/24 13:42 Height 4 ft 10 in Weight 174 lb 2.643 oz BMI 36.4 BP 138/71 Blood Pressure Location Lt brachial Position Sitting Pulse 69 Intake Visit Reasons: s/p colon Eduard Intake Note: Marina presents to in office follow up s/p colonoscopy. CC: Patient states that for a week after colonoscopy she was not having regular BMs but she is fine now. Denies having Director Medicaid Required: No Accompanied by: Self / Same As Patient Allergies cephalexin [Keflex] Allergy (Intermediate, Verified 06/09/24 13:44) Rash ciprofloxacin [From CIPRO] Allergy (Intermediate, Verified 06/09/24 13:44) RASH HPI HPI s/p colon Eduard: Details: Assessment & Plan (1) Tubulovillous adenoma: Comment: 01/2023 scope repeat 1 year Code(s): D36.9 - Benign neoplasm, unspecified site Plan: The procedure needs to be repeated in 1 year r/t the finding of TVA. The procedure was well tolerated. The results were explained and the patient is agreeable to the follow-up interval as stated. The bowel pattern has returned to normal. Education was provided to tell any 1st degree relatives about their findings to be sure that they are screened by age 45. Educated that they will be put on a recall list when it is time for their repeat scope but should they move out of state or away from the hospital they will need to remember along with their primary to repeat the procedure in a timely fashion to avoid any adverse complications. COLONOSCOPY 04/16/2024 Findings: Terminal Ileum: Not evaluated Cecum: A 12 mm sessile polyp - removed with a hot snare Ascending Colon: Normal Transverse Colon: Normal Descending Colon: Moderate diverticulosis Sigmoid Colon: Polypectomy site visualized at 20 cms - showed edematous folds and no recurrent polyp - biopsies were obtained. Moderate diverticulosis Rectum: Normal Ano-rectum: Normal Impression and Post Procedure Diagnosis: Colonoscopy Findings: One medium sized polyp was removed Moderate diverticulosis seen in the left colon Plan: Pt has a FU appointment on 04/30/24 with Kate Colorado NP. Repeat Colonoscopy in 3-5 years if polyps are adenomatous and due to a hx of multiple adenomatous polyps. BIOPSY Received: 04/16/24 Diagnosis A. Colon, cecal polyp: Polypoid colonic mucosa with lymphoid aggregates; no adenomatous dysplasia seen. B. Colon, sigmoid, polypectomy site, biopsy: Colonic mucosa with lymphoid aggregates; no adenomatous dysplasia seen TODAY'S VISIT The procedure needs to be repeated in 5 years r/t past multiple polyposis. The procedure was well tolerated. The results were explained and the patient is agreeable to the follow-up interval as stated. The bowel pattern has returned to normal. Education was provided to tell any 1st degree relatives about their findings to be sure that they are screened by age 45. Educated that they will be put on a recall list when it is time for their repeat scope but should they move out of state or away from the hospital they will need to remember along with their primary to repeat the procedure in a timely fashion to avoid any adverse complications. She feels that the magedicone helped with her prep r/t n/v. Return office visit p.r.n. [facility] Medical History Pre-op examination Back pain Diabetes Asthma Sleep apnea Elevated cholesterol HTN (hypertension) Chronic renal insufficiency Surgical History H/O colonoscopy Hx of tonsillectomy Hx of laparoscopic gastric banding History of cholecystectomy Social History Do you presently have visiting nurse or other home services: No Alcohol intake: current Alcohol intake frequency: does not drink Patient Tobacco Use Status: Former Tobacco user Tobacco use type: Cigarette Years Smoked: 15 Review of Systems Const Denies fatigue, Denies fever(s), Denies night sweats, Denies poor appetite and Denies weight loss ENT Reports Normal hearing present, Denies dental pain, Denies dysphagia, Denies hearing loss, Denies mouth pain, Denies odynophagia, Denies throat swelling, Denies tongue swelling and Reports other (Dentition adequate) Card Reports no additional complaints Resp Reports no additional complaints GI Details: Denies abdominal pain, Denies melena, Denies bloating, Denies hematochezia, Denies constipation, Denies GI cramping, Denies dysphagia, Denies excessive flatus, Denies early satiety, Denies heartburn, Denies diarrhea, Denies nausea, Denies odynophagia, Denies vomiting and Denies hematemesis Skin/Breast Denies pruritus, Denies lesions, Denies rash and Denies jaundice Neuro Reports Normal hearing present and Denies Abnormal speech present Endo Denies fatigue Aller/Immun Denies throat swelling and Denies tongue swelling Physical Exam Vital Signs: Last Vital Signs Pulse 69 06/09/24 13:42 BP 138/71 06/09/24 13:42 BMI result Body Mass Index 36.4 Const General: cooperative, no acute distress, well developed and well groomed Nutritional Appearance: well nourished and obese Orientation/consciousness: oriented to person, oriented to place and oriented to time Limitations: No language barrier HEENT Head: Yes normocephalic and Yes atraumatic Eyes General: appearance normal, both eyes and all related structures Pupils: Equal, round and reactive pupils present Neck Neck: Yes normal visual inspection and Yes no lymphadenopathy Thyroid: Thyroid normal Resp Effort & Inspection: normal respiratory effort and able to speak in complete sentences Auscultation: clear to auscultation bilaterally Cardio Rate: regular rate Rhythm: regular rhythm Heart sounds: Normal, physiologic split S2 sound present Peripheral pulses: radial pulses present and posterior tibial pulses present GI Inspection: No distended, Yes Abdominal panniculus present and Yes obesity Palpation (GI): Soft to palpation, nontender, no guarding, not rigid and No hepatosplenomegaly present Percussion: Yes normal to percussion Auscultation: normal bowel sounds Rectal Exam - Female: deferred Skin General skin exam: no rashes or lesions noted, turgor normal, skin not dry, no jaundice, No spider nevi and no striae Rashes: no rashes Nails: normal Neuro General: oriented to person, oriented to place and oriented to time Cranial nerves: Yes Equal, round and reactive pupils present and Yes Normal hearing present Speech: No Abnormal speech present Extrem General: Yes normal to inspection, No clubbing, No cyanosis and No edema Psych Appearance: grossly normal and well kempt Mental Status: mental status grossly normal Speech and movement: Normal speech and movement present Affect: normal affect Attitude: cooperative Thought process: Normal thought process present and not confabulating Thought content: Normal thought content present Insight: Fair insight present (Psych) Judgement: Fair judgement present (Psych) Results Reviewed Results Reviewed: COLONOSCOPY 04/16/2024 Findings: Terminal Ileum: Not evaluated Cecum: A 12 mm sessile polyp - removed with a hot snare Ascending Colon: Normal Transverse Colon: Normal Descending Colon: Moderate diverticulosis Sigmoid Colon: Polypectomy site visualized at 20 cms - showed edematous folds and no recurrent polyp - biopsies were obtained. Moderate diverticulosis Rectum: Normal Ano-rectum: Normal Impression and Post Procedure Diagnosis: Colonoscopy Findings: One medium sized polyp was removed Moderate diverticulosis seen in the left colon Plan: Pt has a FU appointment on 04/30/24 with Kate Colorado NP. Repeat Colonoscopy in 3-5 years if polyps are adenomatous and due to a hx of multiple adenomatous polyps. BIOPSY Received: 04/16/24 Diagnosis A. Colon, cecal polyp: Polypoid colonic mucosa with lymphoid aggregates; no adenomatous dysplasia seen. B. Colon, sigmoid, polypectomy site, biopsy: Colonic mucosa with lymphoid aggregates; no adenomatous dysplasia seen Assessment & Plan Assessment & Plan (1) Tubulovillous adenoma: Comment: 05/2024= no polyps repeat in 5 years; 01/2023 scope repeat 1 year Code(s): D36.9 - Benign neoplasm, unspecified site Category: Medical Plan The procedure needs to be repeated in 5 years r/t past multiple polyposis. The procedure was well tolerated. The results were explained and the patient is agreeable to the follow-up interval as stated. The bowel pattern has returned to normal. Education was provided to tell any 1st degree relatives about their findings to be sure that they are screened by age 45. Educated that they will be put on a recall list when it is time for their repeat scope but should they move out of state or away from the hospital they will need to remember along with their primary to repeat the procedure in a timely fashion to avoid any adverse complications. She feels that the simethicone helped with her prep r/t n/v. Return office visit p.r.n. Medications: Discontinued simethicone (Gas Relief (simethicone)) take 2 at noon the day before colonoscopy and last 2 pills once you finish drinking second half of prep Discontinued Reason: Doctor's Order 125 mg PO ONCE 4 caps 0RF abdominal distention Coding Level of Care Code Est Pt Level 3 (30303) Diagnoses Tubulovillous adenoma D36.9
[2024-06-09 13:42] VITALS: BP 138/71; PULSE 69; BMI 36.4
== END 2024-06-09 14:03 | disposition home or self-care (01) ==
PROVIDERS: PCP Internal Medicine; Visit Provider Nurse Practitioner
DX: D36.9 Benign neoplasm, unspecified site (principal)
CPT/HCPCS: 99213

== ENCOUNTER → 2024-06-09 13:06 | Outpatient (BNVA) | payer MEDICARE, SELFPAY | PROVIDERS: PCP Internal Medicine; Visit Provider Nurse Practitioner | DX: D36.9 Benign neoplasm, unspecified site (principal) | CPT/HCPCS: 99212 ==

== ENCOUNTER 2024-06-28 11:46 | Day surgery (SDC) | payer MEDICARE, SELFPAY ==
[2024-06-28 12:05] VITALS: BP 124/54; PULSE 85; RESP 18; TEMP 36.6; O2SAT 95; BMI 37.9
--- NOTE | 2024-06-28 13:04 | P.OP_ITS ---
Operative Note Operative Note Date of Service: 06/28/24 Narrative: Operative Note Preop diagnosis: 1. Right middle finger Trigger finger Postop diagnosis: 1. Right middle finger Trigger finger Procedure: 1. Right middle finger A1 faizan release Surgeon: Joana Rondon MD Concert Singer: None Anesthesia: local block using 1% lidocaine with epinephrine Findings: No locking or catching after A1 faizan release EBL: Less than 5 mL Tourniquet time: None Specimens: None Complications: None Disposition: Brought to recovery room in stable condition Plan: Follow-up for 10-14 days for wound check and suture removal Indications: The patient is 69 years old, with a right middle finger trigger finger that has been unresponsive to nonoperative management. The risks and benefits of operative treatment including but not limited to risk of damage to blood vessels, nerves, tendons, infection, persistent pain, persistent symptoms, recurrence or possible need for additional surgery were discussed with the patient and the patient wishes to proceed with surgery. Procedure: Once consent was obtained a local block was performed in the preop area using a combination of 1% lidocaine with epinephrine. The patient was then brought back to the operating suite and placed on the operative table in supine position. The right upper extremity was prepped and draped in a standard surgical fashion. Once assured that we had a good block, a 1.5 cm oblique incision was made centered over the A1 faizan of the right middle finger . The incision was made through the skin to the subcutaneous tissues using a #15 blade. Careful dissection was made down to the level of the A1 faizan using tenotomy scissors, with care being taken to protect the nearby neurovascular structures. A longitudinal incision was made in the A1 faizan 1st using a #15 blade, then using tenotomy scissors under direct visualization. The A1 faizan was noted to be thickened. Following our A1 faizan release, we no longer saw any locking or catching of the digit with flexion and extension. Once satisfied with our A1 faizan release the wound was copiously irrigated with normal saline and hemostasis was obtained with a brief period of local pressure. The skin edges were reapproximated with some 5.0 nylon suture material and a sterile dressing was applied. The patient appears to have tolerated the procedure well and with no complications. All digits were well vascularized at the conclusion of the case.
--- NOTE | 2024-06-28 13:04 | MHC.SHP ---
Pre-Procedural Eval Section A - 24 Hr Update-Section A only Date of Service: 06/28/24 The patient is an INPATIENT: No Changes since office visit: No Cold of Flu in the past 2 weeks, No New Medical Problems, No Changes in Medication and No Patient answered all questions The patient has been examined within 24 hours of the surgical procedure. The History & Physical has been completed within 30 days and I have reviewed it.: Yes Section B - Complete if H&P > 30 days Chief Complaint: Trigger finger, right middle finger Allergies: Allergies Allergy/AdvReac Type Severity Reaction Status Date / Time cephalexin [Keflex] Allergy Intermediate Rash Verified 06/09/24 13:44 ciprofloxacin [From CIPRO] Allergy Intermediate RASH Verified 06/09/24 13:44 Plan Diagnosis/Plan: Unchanged I have reviewed the history and physical and performed a pertinent physical examination on my patient. No changes have occurred unless specified. Time Spent With Patient Time: Total time managing care of this patient today ____ minutes.
[2024-06-28 14:31] VITALS: BP 131/78; PULSE 89; RESP 16; O2SAT 96
== END 2024-06-28 14:34 | disposition home or self-care (01) ==
PROVIDERS: PCP Internal Medicine; Visit Provider Orthopaedic Surgery
PROC: (CPT 26055; principal; 2024-06-28 13:30)
DX: M65.331 Trigger finger, right middle finger (principal); E11.9 Type 2 diabetes mellitus without complications; E78.00 Pure hypercholesterolemia, unspecified; J45.909 Unspecified asthma, uncomplicated; G47.33 Obstructive sleep apnea (adult) (pediatric); Z99.89 Dependence on other enabling machines and devices
CPT/HCPCS: 26055; J0171

== ENCOUNTER → 2024-06-28 11:46 | Outpatient (BNV) | payer MEDICARE, SELFPAY | PROVIDERS: PCP Internal Medicine; Visit Provider Orthopaedic Surgery | DX: M65.331 Trigger finger, right middle finger (principal) | CPT/HCPCS: 26055 ==

== ENCOUNTER 2024-07-14 09:27 | Outpatient (AMB) | payer MEDICARE, SELFPAY ==
--- NOTE | 2024-07-14 09:41 | MHC.OFFVIS ---
Vital Signs 07/14/24 09:42 Height 4 ft 9 in Weight 175 lb BMI 37.9 Intake Visit Reasons: PO-Rt MF Trigger Release 06/28/24 Intake Note: Marina is a 69 yo right hand dominant female who presents today post operatively s/p right middle finger trigger release done 06/28/[address] Rondon. Patient reports soreness around incision site. Denies numbness, tingling or finger locking on finger. Sutures removed in office today and steri strips applied. Allergies cephalexin [Keflex] Allergy (Intermediate, Verified 07/14/24 09:42) Rash ciprofloxacin [From CIPRO] Allergy (Intermediate, Verified 07/14/24 09:42) RASH HPI HPI PO-Rt MF Trigger Release 06/28/24: Details: Marina is a 69 year old right hand dominant Diabetic woman who presents S/P right middle finger trigger release, DOS: 06/28/24. She says she is doing fair. She complains of some pain about her incision site. She denies any locking or catching. She says she has a Hx of carpal tunnel syndrome. She denies any numbness in her hands, but had some questions about the condition & treatment. [facility] Medical History Pre-op examination Back pain Diabetes Asthma Sleep apnea Elevated cholesterol HTN (hypertension) Chronic renal insufficiency Surgical History H/O colonoscopy Hx of tonsillectomy Hx of laparoscopic gastric banding History of cholecystectomy Social History Do you presently have visiting nurse or other home services: No Alcohol intake: current Alcohol intake frequency: does not drink Patient Tobacco Use Status: Former Tobacco user Tobacco use type: Cigarette Years Smoked: 15 Review of Systems Const All systems reviewed & are unremarkable except as noted in HPI and below Physical Exam Vital Signs: BMI result Body Mass Index 37.9 Const General: no acute distress and alert Orientation/consciousness: patient oriented x3 Neuro General: patient oriented x3 Extrem Other: The patient was alert oriented and in no acute distress The incision is healing well with no erythema drainage or evidence of infection. Sutures removed and Steri-Strips applied She can make a fist and extend all her digits No locking or catching Sensation is intact Cap refill is brisk Psych Appearance: grossly normal Affect: normal affect Attitude: cooperative Assessment & Plan Assessment & Plan (1) Trigger finger, right middle finger: Code(s): M65.331 - Trigger finger, right middle finger Category: Medical (2) Diabetes: Code(s): E11.9 - Type 2 diabetes mellitus without complications Category: Medical Plan Assessment & Plan: 1. Right middle finger trigger finger, S/P release DOS: 06/28/24 The patient appears to be doing well post-operatively I educated her about the post-operative course I explained the signs and symptoms of infection, if the patient develops any new or worsening erythema, drainage, pain, or warmth they should contact the clinic or attend the ED. I discussed activity modifications, she is to lift nothing heavier than a cellphone for the next two weeks She will perform gentle ROM exercises at home She should avoid any underwater activities for the next 5 days She should gently massage about the incision site to reduce the risk of hypersensitivity She can follow up prn Scribed for Joana Rondon MD by Villa Tineo, medical assisting instructor, on 07/14/24 at 10:10 AM, EST. Coding Level of Care Code Global (21116) Diagnoses Trigger finger, right middle finger M65.331 Diabetes E11.9
[2024-07-14 09:42] VITALS: BMI 37.9
== END 2024-07-14 10:47 | disposition home or self-care (01) ==
PROVIDERS: PCP Internal Medicine; Visit Provider Orthopaedic Surgery
DX: M65.331 Trigger finger, right middle finger (principal); E11.9 Type 2 diabetes mellitus without complications
CPT/HCPCS: 99024

== ENCOUNTER → 2024-07-14 09:27 | Outpatient (BNVA) | payer MEDICARE, SELFPAY | PROVIDERS: PCP Internal Medicine; Visit Provider Orthopaedic Surgery | DX: Z47.89 Encounter for other orthopedic aftercare (principal); E11.9 Type 2 diabetes mellitus without complications; Z98.890 Other specified postprocedural states | CPT/HCPCS: 99212 ==

== ENCOUNTER 2025-03-07 09:31 | Outpatient (REF) | payer MEDICARE, SELFPAY ==
--- OUTSIDE RECORDS SUMMARY | 2025-03-07 10:34 | XMS_ITS | Encounter Summary ---
Author Organization [employer] Address [address] [place] [id number] Care Team Providers Care County Surveyor Name Role Phone Hammad Brady MD Primary Care Provider [phone] Encounter Details Date Type Department Care Team (Late st Contact Info) Description 05/30/2023 Orders Only [facility] [address] [place], [place] [phone] Devi Garrett LPN Social History Tobacco Use Types Packs/Day Years Used Date Smoking Tobacco: Never Smokeless Tobacco: Never Depression Answer Date Recorded Patient Health Questionnaire-2 Score 2 04/16/2023 Comments Unknown Sex and Gender Information Value Date Recorded Sex Assigned at Female 09/09/2022 10:27 AM EDT Legal Sex Female 10:27 AM EDT Gender Identity Female 09/09/2022 10:27 AM EDT Sexual Orientation Straight 09/09/2022 10 :27 AM EDT documented as of this encounter Plan of Treatment Upcoming Encounters Date Type Department Care Team (Late st Contact Info) Description 06/17/2025 3:30 PM EDT Office Visit [facility] [address] [place], [place] [phone] Hammad Brady MD [address] [place], [place] [phone] documented as of this encounter Visit Diagnoses Not on filedocumented in this encounter Care Teams County Surveyor Relationship Specialty Start Date End Date Hammad Brady MD [address] [place], [place] [phone] PCP - General Internal Medicine 03/23/15 documented as of this encounter
--- OUTSIDE RECORDS SUMMARY | 2025-03-07 10:34 | XMS_ITS | Encounter Summary ---
Author Organization [employer] Address [address] [place] [address] Care Team Providers Care Liquid Chlorine Operator Name Role Phone Hammad Brady MD Primary Care Provider [phone]- [phone] Reason for Visit * Reason Comments Med Refill Encounter Details Date Type Department Care Team ([facility] Contact Info) Description 12/27/2022 Refill [facility] MED & PEDS [address] [place] [address] Hammad Brady MD [address] [place] [address] Overactive bladder (Primary Dx) Social History Tobacco Use Types Packs/Day Years Used Date Smoking Tobacco: Never Assessed Comments Unknown Sex and Gender Information Value Date Recorded Sex Assigned at Female 09/09/2022 10:27 AM EDT Legal Sex Female 10:27 AM EDT Gender Identity Female 09/09/2022 10:27 AM EDT Sexual Orientation Straight 09/09/2022 10 :27 AM EDT documented as of this encounter Plan of Treatment Upcoming Encounters Date Type Department Care Team ([facility] Contact Info) Description 06/17/2025 3:30 PM EDT Office Visit [facility] MED & PEDS [address] [place], [place] [phone] Hammad Brady MD [address] [place] [address] documented as of this encounter Visit Diagnoses Diagnosis Overactive bladder- Primary Hypertonicity of bladder documented in this encounter Care Teams Liquid Chlorine Operator Relationship Specialty Start Date End Date Hammad Brady MD [address] [place] [id number] PCP - General Internal Medicine 03/23/15 documented as of this encounter
--- OUTSIDE RECORDS SUMMARY | 2025-03-07 10:34 | XMS_ITS | Encounter Summary ---
Author Organization [employer] Address [address] [place] [address] [address] [address] Care Team Providers Care Product Development Consultant Name Role Phone Hammad Brady MD Primary Care Provider [phone] Encounter Details Date Type Department Care Team (Latest Contact Info) Description 03/07/2025 Travel Social History Tobacco Use Types Packs/Day Years Used Date Smoking Tobacco: Never Smokeless Tobacco: Never Alcohol Use Standard Drinks/Week Comments Never 0 (1 standard drink = 0.6 oz pur e alcohol) Alcohol Answer Date Recorded How often do you have a drink containing alcohol ? 1 03/07/2025 How many drinks containing a lcohol do you have on a typical day when you are drinking? 0 03/07/2025 How often do you have six or more drinks on one occasion? 0 03/07/2025 Depression Answer Date Recorded Patient Health Questionnaire-2 Score 2 04/16/2023 Comments No Sex and Gender Information Value Date Recorded Sex Assigned at Female 09/09/2022 10:27 AM EDT Legal Sex Female 10:27 AM EDT Gender Identity Female 09/09/2022 10:27 AM EDT Sexual Orientation Straight 09/09/2022 10 :27 AM EDT documented as of this encounter Plan of Treatment Upcoming Encounters Date Type Department Care Team ( st Contact Info) Description 06/17/2025 3:30 PM EDT Office Visit [facility] MED & PEDS [address] [place], [place] [phone] Hammad Brady MD [address] [place], [place] [phone] documented as of this encounter Visit Diagnoses Not on filedocumented in this encounter Care Teams Product Development Consultant Relationship Specialty Start Date End Date Hammad Brady MD [address] [place] [id number] PCP - General Internal Medicine 03/23/15 documented as of this encounter
--- OUTSIDE RECORDS SUMMARY | 2025-03-07 10:34 | XMS_ITS | Encounter Summary ---
Author Organization [employer] Address [address] [place] [address] Care Team Providers Care Radio Station Audio Engineer Name Role Phone Hammad Brady MD Primary Care Provider [phone]- [phone] Encounter Details Date Type Department Care Team ([facility] Contact Info) Description 08/20/2024 Orders Only [facility] MED & PEDS [address] [place], [place] [phone] ProviderEdmundo MD Social History Tobacco Use Types Packs/Day Years Used Date Smoking Tobacco: Never Smokeless Tobacco: Never Alcohol Use Standard Drinks/Week Comments Never 0 (1 standard drink = 0.6 oz pur e alcohol) Depression Answer Date Recorded Patient Health Questionnaire-2 [...] 06/17/2025 3:30 PM EDT Office Visit [facility] MED & PEDS [address] [place], [place] [phone] Hammad Brady MD [address] [place] [address] documented as of this encounter Procedures Procedure Name Priority Date/Time Associated Diagnosis Comments COLONOSCOPY Routine 04/16/2024 12:39 PM EDT documented in this encounter Results * Hm Colonoscopy (04/16/2024 12:39 PM EDT) us Historical Provider HEALTH MAINTENANCE Final Result documented in this encounter Visit Diagnoses Not on filedocumented in this encounter Care Teams Radio Station Audio Engineer Relationship Specialty Start Date End Date Hammad Brady MD [address] [place] [phone] PCP - General Internal Medicine 03/23/15 documented as of this encounter
--- OUTSIDE RECORDS SUMMARY | 2025-03-07 10:34 | XMS_ITS | Encounter Summary ---
Author Organization [employer] Address [address] [place] [address] Care Team Providers Care District Customs Director Name Role Phone Hammad Brady MD Primary Care Provider [phone]- [phone] Encounter Details Date Type Department Care Team ([facility] Contact Info) Description 02/26/2024 Orders Only [facility] MED & PEDS [address] [place], [place] [phone] Hammad Brady MD [address] [place], [place] [phone] Type 2 diabetes mellitus with hypoglycemia without coma, with long-term current use of insulin ([facility]) (Primary Dx) Social History Tobacco Use Types [...] Upcoming Encounters Date Type Department Care Team ([facility] Contact Info) Description 06/17/2025 3:30 PM EDT Office Visit [facility] MED & PEDS [address] [place], [place] [phone] Hammad Brady MD [address] [place] [address] documented as of this encounter Visit Diagnoses Diagnosis Type 2 diabetes mellitus with hypoglycemia without coma, with long-term current use of insulin ([facility])- Primary documented in this encounter Care Teams District Customs Director Relationship Specialty Start Date End Date Hammad Brady MD [address] [place] [address] PCP - General Internal Medicine 03/23/15 documented as of this encounter
--- OUTSIDE RECORDS SUMMARY | 2025-03-07 10:34 | XMS_ITS | Encounter Summary ---
Author Organization [employer] Address [address] [address] Care Team Providers Care Gas Scrubber Operator Name Role Phone Hammad Brady MD Primary Care Provider [phone]- [phone] Reason for Visit * Reason Onset Date Comments Med Refill 03/01/2025 Encounter Details Date Type Department Care Team ([facility] st Contact Info) Description 03/01/2025 Telephone [facility] [address] [place] [address] Hammad Brady MD [address] [place] [address] Med Refill Social History Tobacco Use Types Packs/Day Years [...] AM EDT documented as of this encounter Miscellaneous Notes * Telephone Encounter - Elle Moralez LPN - 03/01/2025 11:48 AM EDT Medication pended to PCP. * Telephone Encounter - Lily Navarro - 03/01/2025 11:31 AM EDT TC from pt requesting medication refill. Medications needing refill : insulin glargine (Lantus SoloStar) 100 UNIT/ML pen To be sent to: [facility] pharmacy documented in this encounter Plan of Treatment Upcoming Encounters Date Type Department Care Team (Late st Contact Info) Description 06/17/2025 3:30 PM EDT Office Visit [facility] MED & PEDS [address] [place] [address] Hammad Brady MD [address] [place] [address] documented as of this encounter Visit Diagnoses Not on filedocumented in this encounter Care Teams Gas Scrubber Operator Relationship Specialty Start Date End Date Hammad Brady MD [address] [place] [address] PCP - General Internal Medicine 03/23/15 documented as of this encounter
--- OUTSIDE RECORDS SUMMARY | 2025-03-07 10:34 | XMS_ITS | Encounter Summary ---
Author Organization [employer] Address [address] [place] [address] Care Team Providers Care Laborer Ammunition Assembly Name Role Phone Hammad Brady MD Primary Care Provider [phone] Reason for Referral * Consultation (Routine) - Authorized Specialty Diagnoses / Procedures Referred By Darin chavira Referred To Contact Pharmacy Diagnoses Type 2 diabetes mellitus with hypoglycemia without coma, with long-term current use of insulin (CMS/HCC) Hammad Brady MD [address] [place] [address] Phone: tel: fax: Referral ID Status Reason Start Date Expiration Date Visits Requested Visits Authorized [id number] Authorized Consult and Treat 03/07/2025 03/07/2026 6 6 Encounter Details Date Type Department Care Team (Late st Contact Info) Description 03/07/2025 9:00 AM EDT Office Visit [facility] MED & PEDS [address] [place] [address] Hammad Brady MD [address] [place] [address] Type 2 diabetes mellitus with hypoglycemia without coma, with long-term current use of insulin (CMS/HCC) (Primary Dx); Hypercholesterolemia; Primary hypertension; Low back pain at multiple sites Social History Tobacco Use Types Packs/Day Years [...] AM EDT documented as of this encounter Last Filed Vital Signs Vital Sign Reading Time Taken Comments Blood Pressure 128/76 03/07/2025 9:08 AM EDT Pulse 85 03/07/2025 9:08 AM EDT Temperature 36.7 ??C (98 ??F) 03/07/2025 9:08 AM EDT Respiratory Rate 20 03/07/2025 9:08 AM EDT Oxygen Saturation 98% 03/07/2025 9:08 AM EDT Inhaled Oxygen Concentration - - Weight 81.2 kg (179 lb) 03/07/2025 9:08 AM EDT Height 147.3 cm (4' 10 ) 03/07/2025 9:08 AM EDT Body Mass Index 37.41 03/07/2025 9:08 AM EDT documented in this encounter Plan of Treatment Upcoming Encounters Date Type Department Care Team (Late st Contact Info) Description 06/17/2025 3:30 PM EDT Office Visit [facility] MED & PEDS [address] [place] [address] Hammad Brady MD [address] [place] [address] Scheduled Referrals Name Type Priority Associated Diagnoses Orde r Schedule Referral to Pharmacy CDTM Outpatient Referral Routine Type 2 diabetes mellitus with hypoglycemia without coma, with long-term current use of insulin ([facility]) Ordered: 03/07/2025 documented as of this encounter Procedures Procedure Name Priority Date/Time Associated Diagnosis Comments POCT GLUCOSE Routine 03/07/2025 9:31 AM EDT Type 2 diabetes mellitus with hypoglycemia without coma, with long-term current use of insulin ([facility]) POCT GLYCATED HEMOGLOBIN, TOTAL Routine 03/07/2025 9:27 AM EDT Type 2 diabetes mellitus with hypoglycemia without coma, with long-term current use of insulin ([facility]) documented in this encounter Results * POCT Glucose (03/07/2025 9:31 AM EDT) Glucose Blood, POC 164 60 - 200 mg/dL QC Media Lot # [id number] Comment:random Lot# Expiration Date 73, Blood Capillary blood specimen / Unknown 03/07/2025 9:31 AM EDT Hammad Brady MD POINT OF CARE TEST ENTER/ED IT ORDERABLES Final Result * (ABNORMAL) POCT HGB A1C (03/07/2025 9:27 AM EDT) Hemoglobin A1C 9.1(A) 4.0 - 6.0 % QC Media Lot # [id number] Lot# Expiration Date ,910 Blood 03/07/2025 9:27 AM EDT Hammad Brady MD POINT OF CARE TEST ENTER/ED IT ORDERABLES Final Result documented in this encounter Visit Diagnoses Diagnosis Type 2 diabetes mellitus with hypoglycemia without coma, with long-term current use of insulin ([facility])- Primary Hypercholesterolemia Pure hypercholesterolemia Primary hypertension Unspecified essential hypertension Low back pain at multiple sites documented in this encounter Care Teams Laborer Ammunition Assembly Relationship Specialty Start Date End Date Hammad Brady MD [address] [place] [address] PCP - General Internal Medicine 03/23/15 documented as of this encounter
--- OUTSIDE RECORDS SUMMARY | 2025-03-07 10:34 | XMS_ITS | Encounter Summary ---
Author Organization [employer] Address [address] [place] [address] Care Team Providers Care Dietitian Teacher Name Role Phone Hammad Brady MD Primary Care Provider [phone]- [phone] Reason for Visit * Reason Comments Med Refill Encounter Details Date Type Department Care Team ([facility] Contact Info) Description 12/03/2022 Refill [facility] MED & PEDS [address] [place] [address] Hammad Brady MD [address] [place] [address] Social History Tobacco Use Types Packs/Day Years [...] Encounters Date Type Department Care Team (Late Contact Info) Description 06/17/2025 3:30 PM EDT Office Visit [facility] MED & PEDS [address] [place] [address] Hammad Brady MD [address] [place] [address] documented as of this encounter Visit Diagnoses Not on filedocumented in this encounter Care Teams Dietitian Teacher Relationship Specialty Start Date End Date Hammad Brady MD [address] [place] [address] PCP - General Internal Medicine 03/23/15 documented as of this encounter
--- OUTSIDE RECORDS SUMMARY | 2025-03-07 10:34 | XMS_ITS | Clinical Summary ---
Author Organization [employer] Address [address] [place] [address] 7 [place] [address] Care Team Providers Care Director Quality Assurance Name Role Phone Hammad Brady MD Primary Care Provider [phone]- [phone] Allergies Active Allergy Reactions Criticality Noted Date Comments Ciprofloxacin Rash High 07/27/2015 Medications * This document contains information received from the source organization and may not represent a complete record from that organization. baclofen (Lioresal) 10 MG tabletIndicatio ns:Muscle spasm of back Take 0.5 tablets (5 mg) by mouth 2 times daily. 30 tablet 1 023 Active sertraline (Zoloft) 100 MG tablet take 1/2 tablet by oral route every day 50MG 022 Active cholecalciferol (Vitamin D-3) 50 MCG (2000 UT) capsule TAKE ONE CAPSULE EVERY MORNING 023 Active albuterol (2.5 MG/3ML) 0.083% nebulizer solutionIndicat ions:Mild persistent asthma without complication Take 3 mL (2.5 mg) by nebulization every 6 (six) hours if needed for wheezing. 75 mL 11 023 Active fluticasone (Flonase) 50 MCG/ACT nasal sprayIndication s:Seasonal allergies Administer 1-2 sprays into each nostril Once per day. Shake gently. Before first use, prime pump. After use, clean tip and replace cap. 16 g 11 024 2024 Active Diclofenac Sodium 1 % gelIndications: Muscle spasm of back To apply to the affected area 4 times a day 100 g Active empagliflozin (Jardiance) 10 MGIndications:T ype 2 diabetes mellitus with hypoglycemia without coma, with long-term current use of insulin ([facility]) Take 1 tablet (10 mg) by mouth Once per day. 30 tablet 11 2024 Active scopolamine (Transderm-Scop ) 1 MG/3DAYS patch 72 hourIndications :Motion sickness, initial encounter Place 1 patch on the skin every 3rd (third) day. 3 patch Active FREESTYLE LITE test stripIndication s:Type 2 diabetes mellitus with hypoglycemia without coma, with long-term current use of insulin ([facility]) Use to test blood sugar 2 times daily 100 each 024 2024 Active glucose blood test strip To check the FS 2 times a day 100 each 024 2024 Active Lancet Devices (Autolet) lancing device 1 each by Other route in the morning and at bedtime. 100 each 024 2024 Active Lancets (OneTouch Delica) lancets 30G 1 each by Other route in the morning and at bedtime. 100 each 024 2024 Active oxybutynin (Ditropan) 5 MG tabletIndicatio ns:Overactive bladder TAKE ONE TABLET EVERY MORNING 30 tablet Active sertraline (Zoloft) 50 MG tablet TAKE ONE TABLET BY MOUTH EVERY MORNING 30 tablet Active metFORMIN XR (Glucophage-XR) 500 MG 24 hr tablet TAKE ONE TABLET EVERY EVENING WITH dinner, DO NOT BREAK, CRUSH, DISSOLVE OR CHEW 30 tablet Active Aspirin Adult Low Strength 81 MG EC tablet TAKE ONE TABLET EVERY NIGHT AT BEDTIME 30 tablet Active doxepin (SINEquan) 25 MG capsuleIndicati ons:Anxiety Take 1 capsule (25 mg) by mouth at bedtime. 30 capsule 2024 Active Ferrous Sulfate (iron) 325 (65 Fe) MG tabletIndicatio ns:Microcytic anemia TAKE ONE TABLET EVERY OTHER DAY IN THE MORNING 15 tablet 11 12/30/2 024 Active gabapentin (Neurontin) 300 MG capsuleIndicati ons:Muscle spasm TAKE ONE CAPSULE EVERY NIGHT AT BEDTIME 30 capsule Active Continuous Glucose Cia Agent (FreeStyle Nilay 2 [place]) deviceIndicatio ns:Type 2 diabetes mellitus with hypoglycemia without coma, with long-term current use of insulin ([facility]) Scan sensor every 8 hours 1 each Active Continuous Glucose Sensor (FreeStyle Nilay 2 Sensor) miscIndications :Type 2 diabetes mellitus with hypoglycemia without coma, with long-term current use of insulin ([facility]) Apply 1 sensor every 14 days 2 each Active montelukast (Singulair) 10 MG tabletIndicatio ns:Mild intermittent asthma without complication TAKE ONE TABLET EVERY EVENING 30 tablet 025 Active pen needle 32G x 5 mm misc USE DAILY 100 each 025 Active omeprazole (PriLOSEC) [address] capsuleIndicati ons:Gastroesoph ageal reflux disease, unspecified whether esophagitis present TAKE ONE CAPSULE EVERY MORNING BEFORE BREAKFAST 90 capsule 025 Active atorvastatin (Lipitor) 40 MG tabletIndicatio ns:Hypercholest erolemia TAKE ONE TABLET EVERY NIGHT AT BEDTIME 90 tablet 025 Active lisinopril 5 MG tabletIndicatio ns:Hypertension , unspecified type TAKE ONE TABLET EVERY NIGHT AT BEDTIME 90 tablet 025 Active albuterol 108 (90 Base) MCG/ACT inhalerIndicati ons:Seasonal allergies INHALE TWO PUFFS BY MOUTH EVERY 4 TO 6 HOURS NEEDED 18 g 025 Active Lantus SoloStar 100 UNIT/ML penIndications: Type 2 diabetes mellitus with hypoglycemia without coma, with long-term current use of insulin ([facility]) INJECT 35 UNITS SUBCUTANEOUSLY AT BEDTIME 15 mL 025 Active insulin glargine (Lantus SoloStar) 100 UNIT/ML penIndications: Type 2 diabetes mellitus with hypoglycemia without coma, with long-term current use of insulin ([facility]) INJECT 35 UNITS SUBCUTANEOUSLY AT BEDTIME 15 mL 024 2024 Discontinued omeprazole (PriLOSEC) [address] capsuleIndicati ons:Gastroesoph ageal reflux disease, unspecified whether esophagitis present TAKE ONE CAPSULE EVERY MORNING BEFORE BREAKFAST 90 capsule 1 024 2024 Discontinued atorvastatin (Lipitor) 40 MG tabletIndicatio ns:Hypercholest erolemia TAKE ONE TABLET EVERY NIGHT AT BEDTIME 90 tablet 1 024 2024 Discontinued lisinopril 5 MG tabletIndicatio ns:Hypertension , unspecified type TAKE ONE TABLET EVERY NIGHT AT BEDTIME 90 tablet 1 024 2024 Discontinued albuterol 108 (90 Base) MCG/ACT inhalerIndicati ons:Seasonal allergies INHALE TWO PUFFS EVERY 4 TO 6 HOURS NEEDED 18 g 1 025 2024 Discontinued Active Problems Problem Noted Date Diagnosed Date Primary hypertension 11/17/2024 Generalized anxiety disorder 11/17/2024 Overactive bladder 12/27/2022 Diabetes mellitus 08/28/2016 Hypercholesterolemia 08/28/2016 Mild persistent asthma 12/01/2015 Encounters Date Type Department Care Team Description 03/07/2025 9:00 AM EDT Office Visit [facility] [address] [place] [address] Hammad Brady MD Type 2 diabetes mellitus with hypoglycemia without coma, with long-term current use of insulin ([facility]) (Primary Dx); Hypercholesterolemia; Primary hypertension; Low back pain at multiple sites 03/07/2025 Travel 03/01/2025 Telephone [facility] [address] [place] [phone] Hammad Brady MD Med Refill 03/01/2025 Refill [facility] [address] [place] [address] Hammad Brady MD Seasonal allergies; Type 2 diabetes mellitus with hypoglycemia without coma, with long-term current use of insulin ([facility]) 02/23/2025 Patient Outreach [facility] [address] [place] [address] Hammad Brady MD Pre-visit Planning (Pre visit planning LVM ) 02/05/2025 Refill [facility] [address] [place] [address] Hammad Brady MD Gastroesophageal reflux disease, unspecified whether esophagitis present; Hypercholesterolemia; Hypertension, unspecified type 02/02/2025 Refill [facility] [address] [place] [address] Hammad Brady MD 12/14/2024 Travel 12/07/2024 Refill [facility] [address] [place] [address] Hammad Brady MD Mild intermittent asthma without complication from Last 3 Months Immunizations Name Administration Dates Next Due Influenza High-dose Quadriva lent Preservative Free 10/31/2023,08/24/2020 Influenza Injectable Quadriv alant Preservative Free IIV4 MDCK 10/11/2022 Influenza injectable quadriv alent IIV4 with preservative 09/03/2019,08/31/2018,07/28/2017,08/28 Influenza injectable quadriv alent preservative free 12/25/2021,08/16/2015 Influenza, High Dose Seasona l, Preservative Free 08/18/2024 Pfizer Covid-19 Vaccine 12+ 10/01/2024 Pfizer Covid-19 Vaccine 12+ Bivalent 08/22/2022 Pneumococcal Conjugate PCV 13 09/03/2019 Pneumococcal Conjugate PCV 20 10/31/2023 Pneumococcal Polysaccharide PPSV23 09/23/1996 TD (adult), 2 Lf tetanus tox oid, preservative free, adsorbed 09/23/2006 Tdap 06/09/2012 Zoster, Recombinant 01/26/2024,07/21/2023 Zoster, live 03/18/2016 Family History Medical History Relation Name Comments Pancreatic cancer Mother Relation Name Status Comments Mother Social History Tobacco Use Types Packs/Day Years Used Date Smoking Tobacco: Never Smokeless Tobacco: Never Tobacco Cessation:Counseling Given: No Alcohol Use Standard Drinks/Week Comments Never 0 [...] Orientation Straight 09/09/2022 10 :27 AM EDT Last Filed Vital Signs Vital Sign Reading [...] Mass Index 37.41 03/07/2025 9:08 AM EDT Plan of Treatment Upcoming Encounters Date Type Department Care Team (Late st Contact Info) Description 06/17/2025 3:30 PM EDT Office Visit [facility] [address] [place] [address] Hammad Brady MD [address] [place] [address] Health Maintenance Due Date Last Done Comments CT Colonography 1955 FIT DNA/Cologuard 1955 FIT 1955 FOBT 1955 SDOH Screening 1955 Sigmoidoscopy 1955 Eye Exam 02/29/1964 Hepatitis C Screening 02/29/1972 RSV Patients and Patients Aged 60 years or older (1 - Risk 60-74 years 1-dose series) 2014 DTaP/Tdap/Td Vaccines (2 - Td or Tdap) 06/09/2022 06/09/2012, 09/23/2006 Depression Screening 04/16/2024 04/16/2023, 04/16/20 Diabetes: Urine Protein Screening 07/30/2024 07/30/2023, 02/26/2023, 07/19/2022 Lipid Panel 07/30/2024 07/30/2023, 07/19/2022 Mammogram 12/17/2024 12/17/2022, 09/11, 02/26/2018 Diabetes: Hemoglobin A1C 06/06/2025 025, 08/18/2024, 03/10/2024, Additional history exists Diabetes: Foot Exam 11/17/2025 11/17/2024, 10/31/2023, 10/31/2023, Additional history exists Alcohol/Substance Use Screening 03/07/2026 03/07/2025 Tobacco Screening 03/07/2026 03/07/2025 Colonoscopy 04/16/2027 04/16/2024 Colorectal Cancer Screening 04/16/2027 Pneumococcal Vaccine: 50+ Years Completed 10/31/2023, 09/03/2019, 09/23/1996 Zoster Vaccines Completed 01/26/2024, 07/11, 03/18/2016 Influenza Vaccine Completed 08/18/2024, , 10/11/2022, Additional history exists COVID-19 Vaccine Completed 10/01/2024, , 09/26/2021, Additional history exists HIB Vaccines Aged Out No longer eligi ble based on patient's age to complete this topic HPV Vaccines Aged Out No longer eligi ble based on patient's age to complete this topic Hepatitis A Vaccines Aged Out No long er eligible based on patient's age to complete this topic Hepatitis B Vaccines Aged Out No long er eligible based on patient's age to complete this topic IPV Vaccines Aged Out No longer eligi ble based on patient's age to complete this topic Meningococcal Vaccine Aged Out No jonathon dereck eligible based on patient's age to complete this topic RSV under 20 months Aged Out No longe r eligible based on patient's age to complete this topic Rotavirus Vaccines Aged Out No longer eligible based on patient's age to complete this topic Procedures Procedure Name Priority Date/Time Associated Diagnosis Comments POCT GLUCOSE Routine 03/07/2025 9:31 AM EDT Type 2 diabetes mellitus with hypoglycemia without coma, with long-term current use of insulin ([facility]) POCT GLYCATED HEMOGLOBIN, TOTAL Routine 03/07/2025 9:27 AM EDT Type 2 diabetes mellitus with hypoglycemia without coma, with long-term current use of insulin ([facility]) HM COLONOSCOPY Routine 04/16/2024 12:39 PM EDT ALBUMIN, RANDOM URINE W/CREATININE Routine 07/30/2023 10:30 AM EDT LIPID PANEL, STANDARD Routine 07/30/2023 9:32 AM EDT BI MAMMOGRAM SCREENING TOMOSYNTHESIS BILATERAL Routine 12/17/2022 8:01 AM EST from Last 3 Months or Most Recently Relevant to Health Maintenance Results * POCT Glucose (03/07/2025 9:31 AM EDT) Glucose Blood, POC 164 60 - 200 mg/dL QC Media Lot # [id number] Comment:random Lot# Expiration Date [id number] Blood Capillary blood specimen / Unknown 03/07/2025 9:31 AM EDT Hammad Brady MD POINT OF CARE TEST ENTER/ED IT ORDERABLES Final Result * (ABNORMAL) POCT HGB A1C (03/07/2025 9:27 AM EDT) Hemoglobin A1C 9.1(A) 4.0 - 6.0 % QC Media Lot # [id number] Lot# Expiration Date [id number] Blood 03/07/2025 9:27 AM EDT Hammad Brady MD POINT OF CARE TEST ENTER/ED IT ORDERABLES Final Result * Hm Colonoscopy (04/16/2024 12:39 PM EDT) Historical Provider HEALTH MAINTENANCE Final Result * (ABNORMAL) Albumin, Random Urine W/Creatinine (07/30/2023 10:30 AM EDT) Creatinine, Urine 73.82 mg/dL [facility] Microalbumin Urine 28.0 mg/L H [facility] Microalbum Creatinine Ratio Ur 37.9(H) <30 ug/mg cr [facility] Comment:Albumin/Creatinine R atio Reference Ranges: Normal: < 30 ug/mg creatinine Microalbuminuria: 30 - 300 ug/mg creatinineClinical Albuminuria: > 300 ug/mg creatinine 07/30/2023 10:3 0 AM EDT 07/30/2023 2:26 PM EDT us Hammad Brady MD LAB URINE ORDERABLES Final Result [facility] [address] [place] [phone] * (ABNORMAL) Lipid Panel, Standard (07/30/2023 9:32 AM EDT) Triglycerides 108 <150 mg/dL [facility] Comment:Desirable Triglyceri de: less than 150 mg/dLBorderline High Triglyceride 150-199 mg/dLHigh Triglyceride: 200-499 mg/dLVery High Triglyceride: greater than or equal to 5OO mg/dL Cholesterol 138 <200 mg/dL [facility] Comment:Desirable Cholestero l: less than 200 mg/dLBorderline High Cholesterol: 200-239 mg/dLHigh Cholesterol: greater than 239 mg/dL LDL Cholesterol Calculated 77 <100 mg/dL [facility] Comment:Desirable LDL: less than 100 mg/dLNear Optimal/Above Optimal LDL: 110- 129 mg/dLBorderline High LDL: 130-159 mg/dLHigh LDL: 160-189 mg/dLVery High LDL: greater than or equal to 190 mg/dL HDL Cholesterol 40(L) >40 mg/dL [facility] Comment:Desirable HDL: great er than 40 mg/dL Note: This HDL assay may give artificially low results in patients with liver disease. 07/30/2023 9:32 AM EDT 07/30/2023 2:23 PM EDT us Hammad Brady MD LAB BLOOD ORDERABLES Final Result [facility] [address] [place] [address] [phone] * BI Mammogram Screening Tomosynthesis Bilateral (12/17/2022 8:01 AM EST) Anatomical Region Laterality Modality Breast Bilateral Mammography 12/17/2022 8:01 AM EST Narrative 12/18/2022 4:12 PM EST ? [facility] ? [address] ?[place] [address] ? Mammography Report ? Signed ? Patient: Jenny,Marina M ?MR#: [id number] ?? 20 ? : 1955 ?Acct:[id number] ? Age/Sex: 67 / F ?ADM Date: 12/17/22 ? Loc: HO.MAMMO ? Attending Dr: Neha Soto CNM ? Ordering Physician: NEHA SOTO CNM ?Results: 1 ?? Negative ? Date of Service: 12/17/22 ?Follow Up: 1 Year From Orig ?? inal Mammogram ? Procedure(s): MM tomosynthesis screening BI ?? Accession Number(s): [id number] ? cc: NEHA SOTO CNM ? EXAMINATION: ?? MM SCREENING DIGITAL BREAST TOMOSYNTHESIS, BILATERAL ? CLINICAL INFORMATION: ? Screening. Asymptomatic. ? The lifetime risk of breast cancer based on the Tyrer-Cuzick Model is ?? 3.0%. ? COMPARISON: ?? Mammography: August 18, 2021 and studies dating back to February 27, 2015 ? TECHNIQUE: ?? Digital breast tomosynthesis is performed in both the craniocaudal and ?? mediolateral oblique views along with computer-aided detection (CAD). ?? Synthesized 2D images are generated from the tomosynthesis. ? FINDINGS: ?? There are scattered areas of fibroglandular density (ACR BI-RADS breast ?? composition Category b). ? There are no significant masses, abnormal calcifications, or other ?? abnormalities. ? MM/MM tomosynthesis screening BI ?? IMPRESSION: ?? No significant changes ? ASSESSMENT: ? BI-RADS 1: Negative ? RECOMMENDATION: ?? Routine annual mammography screening. ? This patient's information was entered into a reminder system with a ?? target due date for their next mammogram. ? Dictated By: ?Pj Oropeza MD ? Signed By: ?<Electronically signed by Pj Oropeza MD in OV> ?12/18/22 1609 ? DD/ 0801 ? TD/TT: ? Sales Clerk Supervisor: SK ? Procedure Note Ramesh Aquino - 12/18/2022 [facility] [address] [place], [place] [address] Mammography Report Signed Patient: Marina Alvarado [facility]#: [id number] 21 : 4Acct:[id number] Age/Sex: 67 / FADM Date: 12/17/22 Loc: HO.MAMMO Attending Dr: Neha Soto CNZandra Ordering Physician: NEHA SOTOesults: 1 Negative Date of Service: 12/17/22Follow Up: 1 Year From Orig inal Mammogram Procedure(s): MM tomosynthesis screening BI Accession Number(s): [id number] cc: NEHA SOTO CNM EXAMINATION: MM SCREENING DIGITAL BREAST TOMOSYNTHESIS, BILATERAL CLINICAL INFORMATION: Screening. Asymptomatic. The lifetime risk of breast cancer based on the Tyrer-Cuzick Model is 3.0%. COMPARISON: Mammography: August 18, 2021 and studies dating back to February 27, 2015 TECHNIQUE: Digital breast tomosynthesis is performed in both the craniocaudal and mediolateral oblique views along with computer-aided detection (CAD). Synthesized 2D images are generated from the tomosynthesis. FINDINGS: There are scattered areas of fibroglandular density (ACR BI-RADS breast composition Category b). There are no significant masses, abnormal calcifications, or other abnormalities. MM/MM tomosynthesis screening BI IMPRESSION: No significant changes ASSESSMENT: BI-RADS 1: Negative RECOMMENDATION: Routine annual mammography screening. This patient's information was entered into a reminder system with a target due date for their next mammogram. Dictated By: Pj Oropeza MD Signed By: <Electronically signed by Pj Oropeza MD in OV> 12/18/22 1609 DD/ 0801 TD/TT: Sales Clerk Supervisor: BR[facility] External Provider IMG BI PROCEDURES Final Result from Last 3 Months or Most Recently Relevant to Health Maintenance Insurance [facility] MEDICARE REPLACEMENT Care Teams Director Quality Assurance Relationship Specialty Start Date End Date Hammad Brady MD [address] [place] [phone] PCP - General Internal Medicine 03/23/15
--- OUTSIDE RECORDS SUMMARY | 2025-03-07 10:34 | XMS_ITS | Encounter Summary ---
Author Organization [employer] Address [address] [place] [address] Care Team Providers Care Lumber Puller Name Role Phone Hammad Brady MD Primary Care Provider [phone]- [phone] Reason for Visit * Reason Comments Med Refill Encounter Details Date Type Department Care Team (Late Contact Info) Description 05/30/2023 Refill [facility] [address] [place] [address] Hammad Brady MD [address] [place] [address] Social History Tobacco Use Types Packs/Day Years [...] Description 06/17/2025 3:30 PM EDT Office Visit [facility] [address] [place] [address] Hammad Brady MD [address] [place] [address] documented as of this encounter Visit Diagnoses Not on filedocumented in this encounter Care Teams Lumber Puller Relationship Specialty Start Date End Date Hammad Brady MD [address] [place] [phone] PCP - General Internal Medicine 03/23/15 documented as of this encounter
--- OUTSIDE RECORDS SUMMARY | 2025-03-07 10:34 | XMS_ITS | Encounter Summary ---
Author Organization [employer] Address [address] [place] [address] Care Team Providers Care Licensing Analyst Name Role Phone Hammad Brady MD Primary Care Provider [phone]- [phone] Encounter Details Date Type Department Care Team ([facility] Contact Info) Description 07/07/2023 Orders Only [facility] [address] [place], [place] [phone] Elle Moralez LPN Social History Tobacco Use Types Packs/Day [...] Description 06/17/2025 3:30 PM EDT Office Visit [facility] [address] [place], [place] [phone] Hammad Brady MD [address] [place] [address] documented as of this encounter Visit Diagnoses Not on filedocumented in this encounter Care Teams Licensing Analyst Relationship Specialty Start Date End Date Hammad Brady MD [address] [place] [phone] PCP - General Internal Medicine 03/23/15 documented as of this encounter
[2025-03-07 14:21] LABS: Cholesterol 142 mg/dL (<200); HDL Cholesterol 37 mg/dL (>40); LDL Cholesterol Calculated 83 mg/dL (<100); Triglycerides 113 mg/dL (<150)
[2025-03-08 07:49] LABS: ~HepC Num1 0.12 S/CO (0.00-0.79); ~Hepatitis C Antibody Nonreactive (Nonreactive)
== END 2025-03-07 09:32 | disposition home or self-care (01) ==
LOC: HO.CHCLDS 09:31
PROVIDERS: Visit Provider Internal Medicine
DX: E11.649 Type 2 diabetes mellitus with hypoglycemia without coma (principal); Z79.4 Long term (current) use of insulin; E78.00 Pure hypercholesterolemia, unspecified
CPT/HCPCS: 36415; 80061; 86803

== ENCOUNTER 2025-05-16 14:22 | Outpatient (AMB) | payer MEDICARE, SELFPAY ==
[2025-05-16 14:28] VITALS: BMI 37.9
--- NOTE | 2025-05-16 14:28 | A.OFFVIS_ITS ---
Vital Signs 05/16/25 14:28 Height 4 ft 9 in Weight 175 lb BMI 37.9 Intake Visit Reasons: Inj- RT hip trochanteric bursa inj Intake Note: Marina a 70 year old female who presents today for a right hip trochanteric bursa injection, last injection on 04/26/24. Patient reports injection provided her with relief, stating most relief was for 3-4 months. She would like to discuss repeating injection today. Allergies cephalexin (Keflex) Allergy (Intermediate, Verified 05/16/25 14:39) Rash ciprofloxacin (From CIPRO) Allergy (Intermediate, Verified 05/16/25 14:39) RASH HPI HPI Inj- RT hip trochanteric bursa inj: Details: 70-year-old female returns to the office today for a follow-up right hip pain. She states the injection was helpful for about 3-4 months but she continues to have discomfort out in the right hip with activities such as prolonged standing or sleeping on the right side. [facility] Medical History Pre-op examination Back pain Diabetes Asthma Sleep apnea Elevated cholesterol HTN (hypertension) Chronic renal insufficiency Surgical History H/O colonoscopy Hx of tonsillectomy Hx of laparoscopic gastric banding History of cholecystectomy Social History Do you presently have visiting nurse or other home services: No Alcohol intake: current Alcohol intake frequency: does not drink Patient Tobacco Use Status: Former Tobacco user Tobacco use type: Cigarette Years Smoked: 15 Review of Systems Const All systems reviewed & are unremarkable except as noted in HPI and below Physical Exam Vital Signs: BMI result Body Mass Index 37.9 Const General: cooperative, healthy appearing, comfortable, no acute distress, well developed and alert Orientation/consciousness: patient oriented x3 HEENT Head: Yes normal to inspection, Yes normocephalic and Yes atraumatic Eyes General: appearance normal, both eyes and all related structures Resp Effort & Inspection: normal respiratory effort and able to speak in complete sentences Cardio Rate: regular rate Peripheral pulses: Peripheral pulses 2+ throughout GI Palpation (GI): Soft to palpation Skin Lesions: no lesions Rashes: no rashes Neuro General: patient oriented x3 Extrem Other: Right hip: Normal to inspection. No pain with ROM of the hip. Pain along the greater trochanter. No pain with hip flexion or abduction. Positive tenderness along the SI joint, Positive SLR. NVI. Office Procedures AMB Joint Injection/Aspiration Joint Injection/Aspiration Details: right hip bursa Prep: site was prepped using aseptic technique, ethochloride spray was applied and injection warnings given Injected: 80 mg of, DepoMedrol, with 8 mL of and 1% plain lidocaine Procedure: The patient tolerated the procedure well and there was some relief with the local anesthesia Coding 87534 - Glenohumeral/Tronchanteric Bursa/Intraarticular Procedure code (CPT) selection complete Assessment & Plan Assessment & Plan (1) Trochanteric bursitis, right hip: Code(s): M70.61 - Trochanteric bursitis, right hip Category: Medical Plan We discussed options today, which include steroid injection. The patient did consent to move forward with the right hip trochanteric bursa injection, which was tolerated well. I recommended rest, ice, and elevation and OTC anti- inflammatories as needed for discomfort. If symptoms persist or worsen over the next 6-8 weeks, patient will contact the office, otherwise follow-up as needed. We also discussed their diabetes and the effect the steroid can have on thier blood glucose levels; therefore, they will continue to monitor these very closely over the next 72 hours Orders: Orders PT Evaluation and Treatment Today M70.61 - Trochanteric bursitis, right hip Coding Level of Care Code Est Pt Level 3 (16152) Complex EM visit Add On G2211 Diagnoses Trochanteric bursitis, right hip M70.61 CPT Codes Coding - Joint 7: 64805 - Glenohumeral/Tronchanteric Bursa/Intraarticular ([id number])
--- OUTSIDE RECORDS SUMMARY | 2025-05-16 14:55 | XMS_ITS | Encounter Summary ---
Author Organization [employer] Address [address] [place] [id number] Care Team Providers Care Structures Engineer Name Role Phone Hammad Brady MD Primary Care Provider [phone] Pari Salomon PharmD Unavailable [phone] Reason for Visit * Reason Comments Med Refill Encounter Details Date Type Department Care Team ([facility] Contact Info) Description 12/03/2022 Refill [facility] MED & PEDS [address] [place] [address] Hammad Brady MD [address] [place] [address] Social History Tobacco Use Types Packs/Day Years [...] Upcoming Encounters Date Type Department Care Team ([facility] Contact Info) Description 05/31/2025 1:00 PM EDT Medication Management [facility] [address] [place] [address] Pari Salomon, PharmD [address] [place] [address] 06/17/2025 3:30 PM EDT Office Visit [facility] P[facility] [address] [place] [address] Hammad Brady MD [address] [place] [address] documented as of this encounter Visit Diagnoses Not on filedocumented in this encounter Care Teams Structures Engineer Relationship Specialty Start Date End Date Hammad Brady MD [address] [place] [address] PCP - General Internal Medicine 03/23/15 Pari Salomon PharmD [address] [place] [address] Pharmacist Internal Medicine 03/21/25 documented as of this encounter
== END 2025-05-16 15:48 | disposition home or self-care (01) ==
LOC: HO.HOS 14:23
PROVIDERS: PCP Internal Medicine; Visit Provider Physician Assistant
DX: M70.61 Trochanteric bursitis, right hip (principal)
CPT/HCPCS: 20610; 99213

== ENCOUNTER → 2025-05-16 14:22 | Outpatient (BNVA) | payer MEDICARE, SELFPAY | PROVIDERS: PCP Internal Medicine; Visit Provider Physician Assistant | DX: M70.61 Trochanteric bursitis, right hip (principal); Z79.52 Long term (current) use of systemic steroids | CPT/HCPCS: 20610; 99212; J1010; J2003 ==

== ENCOUNTER 2025-06-30 13:55 | Outpatient (RCR) | payer MEDICARE, SELFPAY ==
--- NOTE | 2025-06-02 16:00 | MHC.PT.EP ---
[facility] [place] [facility] [place] [facility] [place] [facility] [address] Justin Jasso [address] [phone] F: [phone] F: [phone] F: [phone] F: [phone] Physical Therapy Plan of Care Date of Evaluation: 06/02/25 Date of Surgery: n/a Diagnosis: Trochanteric bursitis, right hip Assessment: Pt is a pleasant and motivated 70yo F who presents to PT with R hip pain. She presents to PT with current impairments in pain, decreased hip ROM, decreased strength, decreased muscle length, soft tissue restrictions, and impaired gait. She is TTP with muscular restrictions throughout R glutes and piriformis. She is limited functionally by prolonged standing, walking, and stair navigation. She is an excellent candidate for skilled PT in order to address current impairments to facilitate return to PLOF. She is recommended to be seen 2x/week for 5 weeks and will be reassessed Frequency and Duration: The patient will be seen 2x/week for 5 weeks Short Term Goals: Pt will be I with HEP to promote self management of symptoms Pt will improve R IR by 5 degrees Pt will improve R knee extension strength to 4+/5 Printmaker Goals: Pt will tolerate prolonged ambulation > 20 minutes with minimal to no pain Pt will ascend/descend 1 flight of stairs with minimal to no pain Pt will demonstrate improvements in function as evidenced by statistically significant improvement in LEFI outcome measure Treatment Plan: Modalities to reduce pain, spasms and effusion. Manual therapy to restore motion and function. Therapeutic exercise to improve strength and flexibility. Neuromuscular re-education for posture and balance. Therapeutic activities to return to functional activities of daily living. Electronically signed by: Madison Saucedo, PT, DPT Please sign and return to therapist. Thank you for your referral.
--- NOTE | 2025-06-30 17:52 | MHC.PT.DC ---
[facility] [place] Office [place] Office [place] Office [address] Justin Jasso [address] [phone] F: [phone] F: [phone] F: [phone] F: [phone] Physical Therapy Discharge Report Diagnosis: Trochanteric bursitis, right hip Date of Surgery: n/a Date of Evaluation: 06/02/25 Date of Discharge: Treatments to Date: 8 Cancellations to Date: No Shows to Date: Discharge Status: Discharge Summary: Pt has made good progress since SOC. She has met her STGs and made good progress toward her LTGs. She has improved her score on LEFI outcome measure from 43/80 on initial PT evaluation to 48/80 today. She has demonstrated improvements in ROM, strength, and endurance throughout sessions. She is independent with HEP. She is being D/C to HEP at this time. She reports she has printed copy of HEP and therabands. She reports no further questions or concerns for PT at this time Electronically signed by: Please sign and return to therapist. Thank you for your referral.
== END 2025-06-30 17:52 | disposition home or self-care (01) ==
LOC: HO.PT 13:55
PROVIDERS: PCP Internal Medicine; Visit Provider Physician Assistant
DX: M70.61 Trochanteric bursitis, right hip (principal)
CPT/HCPCS: 97110; 97112; 97140; 97162; 97530

== ENCOUNTER 2025-08-02 14:20 | Outpatient (REF) | payer MEDICARE, SELFPAY ==
[2025-08-02 18:58] LABS: Anion Gap 11 (12-20); Blood Urea Nitrogen 33 mg/dL (9-16); Calcium 9.5 mg/dL (8.4-10.2); Carbon Dioxide 28 mmol/L (22-29); Chloride 106 mmol/L (96-108); Estimated Glomerular Filt Rate 47; Potassium 4.6 mmol/L (3.3-5.1); Sodium 140 mmol/L (135-145)
[2025-08-02 19:27] LABS: Microalbum/Creatinine Ratio Ur 36.9 ug/mg cr (<30); Total Protein Urine Random 12 mg/dL (<12)
== END 2025-08-02 14:21 | disposition home or self-care (01) ==
LOC: HO.CHCLDS 14:20
PROVIDERS: Visit Provider Internal Medicine
DX: E11.649 Type 2 diabetes mellitus with hypoglycemia without coma (principal); Z79.4 Long term (current) use of insulin
CPT/HCPCS: 36415; 80048; 82043; 82570; 84156

== ENCOUNTER 2025-08-09 14:37 | Outpatient (AMB) | payer MEDICARE, SELFPAY ==
--- NOTE | 2025-08-09 14:43 | HO.NEPHOV_ITS ---
Vital Signs 08/09/25 14:47 Height 4 ft 9 in Weight 174 lb 4 oz BMI 37.7 BP 120/70 Blood Pressure Location Lt brachial Position Sitting Pulse 91 Pulse Source Pulse Oximeter Pulse Oximetry (%) 97 Oxygen Delivery Method Room Air Intake Visit Reasons: ENP: CKD STG 3 Washer Hand Required: No Accompanied by: Daughter Allergies cephalexin (Keflex) Allergy (Intermediate, Verified 08/09/25 14:47) Rash ciprofloxacin (From CIPRO) Allergy (Intermediate, Verified 08/09/25 14:47) RASH HPI Comments Details: I had the privilege of seeing Marina in consultation for CKD and proteinuria. She is a diabetic for close to 30 years. She denies retinopathy but has mild proteinuria and neuropathy. She has been on ACEI but does not take excess NSAID's. She denies CAD, CHF, CVA, carotid stenosis, PAD or known ISAAK. She has no H/O hypercalcemia, new bone or back pain. She denied renal calculus, SOB, PND, orthopnea or pedal edema. She has RAMIN but has not been compliant with CPAP. [facility] Medical History Chronic kidney disease, stage 3a Generalized anxiety disorder Hypercholesteremia Pre-op examination Back pain Diabetes Asthma Sleep apnea Elevated cholesterol HTN (hypertension) Chronic renal insufficiency Surgical History H/O colonoscopy Hx of tonsillectomy Hx of laparoscopic gastric banding History of cholecystectomy Social History Do you presently have visiting nurse or other home services: No Alcohol intake: current Alcohol intake frequency: does not drink Patient Tobacco Use Status: Former Tobacco user Tobacco use type: Cigarette Years Smoked: 15 Review of Systems Const All systems reviewed & are unremarkable except as noted in HPI and below Physical Exam Vital Signs: Last Vital Signs Pulse 91 08/09/25 14:47 BP 120/70 08/09/25 14:47 Pulse Ox 97 08/09/25 14:47 Oxygen Delivery Method Room Air 08/09/25 14:47 BMI result Body Mass Index 37.7 Const General: comfortable and no acute distress Orientation/consciousness: patient oriented x3 HEENT Head: Yes normocephalic Mouth: Normal oral and palatal mucosa present Eyes EOM: EOMs intact bilaterally Neck Neck: Yes supple Resp Auscultation: clear to auscultation bilaterally Cardio Jugular venous distension: no JVD Rate: regular rate GI Palpation (GI): Soft to palpation Auscultation: normal bowel sounds General: Yes no CVA tenderness Back/Spine/Pelvis Back: no CVA tenderness Skin General skin exam: no rashes or lesions noted Neuro General: patient oriented x3 and moves all extremities Extrem General: Yes no pedal edema Results Reviewed Nephrology Results: Sodium, (135-145) 140 mmol/L 08/02/25 Potassium, (3.3-5.1) 4.6 mmol/L 08/02/25 Chloride, (96-108) 106 mmol/L 08/02/25 Carbon Dioxide, (22-29) 28 mmol/L 08/02/25 BUN, (9-16) 33 mg/dL H 08/02/25 Creatinine, (0.5-1.4) 1.14 mg/dL 08/02/25 Calcium, (8.4-10.2) 9.5 mg/dL 08/02/25 Urine Creatinine 64.96 mg/dL 08/02/25 Assessment & Plan Assessment & Plan (1) Chronic kidney disease (CKD) stage G3a/A1, moderately decreased glomerular filtration rate (GFR) between 45-59 mL/min/1.73 square meter and albuminuria creatinine ratio less than 30 mg/g: Code(s): N18.31 - Chronic kidney disease, stage 3a Category: Medical (2) Diabetic nephropathy: Code(s): E11.21 - Type 2 diabetes mellitus with diabetic nephropathy Category: Medical Qualifiers: Diabetes mellitus type: type 2 Qualified Code(s): E11.21 - Type 2 diabetes mellitus with diabetic nephropathy Plan 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 She has mild proteinuria. Her renal functions are stable. She maintains good hydration. She is on Jardiance, ACEI and Mounjaro. I shall consider going up on ACEI and SGLT2 i with time. I plan to do a renal USS and 24 hour urine for creatinine clearance with time. There is no indication for renal biopsy now. She should minimize or avoid NSAID's. All these have been explained in detail. Answered all her, her 's and daughter's questions. Further management is pending evolving data & F/U is given Orders: Orders Creatinine 3 Months E11.21 - Type 2 diabetes mellitus with diabetic nephropathy, N18.31 - Chronic kidney disease, stage 3a Blood Urea Nitrogen 3 Months E11.21 - Type 2 diabetes mellitus with diabetic nephropathy, N18.31 - Chronic kidney disease, stage 3a Electrolytes 3 Months E11.21 - Type 2 diabetes mellitus with diabetic nephropathy, N18.31 - Chronic kidney disease, stage 3a Protein Creatinine Ratio, Ur 3 Months E11. - Type 2 diabetes mellitus with diabetic nephropathy, N18.31 - Chronic kidney disease, stage 3a Calcium 3 Months E11. - Type 2 diabetes mellitus with diabetic nephropathy, N18.31 - Chronic kidney disease, stage 3a Immunofixation Pnl, Serum 3 Months E11. - Type 2 diabetes mellitus with diabetic nephropathy, N18.31 - Chronic kidney disease, stage 3a Coding Level of Care Code New Pt Level 4 (63101) Diagnoses Chronic kidney disease (CKD) stage G3a/A1, moderately decreased glomerular filtration rate (GFR) between 45-59 mL/min/1.73 square meter and albuminuria creatinine ratio less than 30 mg/g N18.31 Diabetic nephropathy associated with type 2 diabetes mellitus . Diabetes mellitus type: type 2
[2025-08-09 14:47] VITALS: BP 120/70; PULSE 91; O2SAT 97; BMI 37.7
--- OUTSIDE RECORDS SUMMARY | 2025-08-09 16:02 | XMS_ITS | Encounter Summary ---
Author Organization [employer] Address [address] [place] [address] Care Team Providers Care Glove Operator Name Role Phone Hammad Brady MD Primary Care Provider [phone] Pari Salomon PharmD Unavailable [phone] Reason for Visit * Reason Onset Date Comments Med Refill 03/01/2025 Encounter Details Date Type Department Care Team (Late st Contact Info) Description 03/01/2025 Telephone [facility] MEDICINE [address] [place] [address] Hammad Brady MD [address] [place] [address] Med Refill Social History Tobacco Use Types [...] to PCP. * Telephone Encounter - Lily Varghese 03/01/2025 11:31 AM EDT TC from pt requesting medication refill. Medications needing refill : insulin glargine (Lantus SoloStar) 100 UNIT/ML pen To be sent to: [facility] pharmacy documented in this encounter Plan of Treatment Upcoming Encounters Date Type Department Care Team (Late st Contact Info) Description 09/20/2025 2:00 PM EST Medication Management [facility] MED & PEDS [address] [place] [address] Pari Salomon PharmD [address] [place] [address] documented as of this encounter Visit Diagnoses Not on filedocumented in this encounter Care Teams Glove Operator Relationship Specialty Start Date End Date Hammad Brady MD [address] [place] [address] PCP - General Internal Medicine 03/23/15 Pari Salomon PharmD [address] [place] [address] Pharmacist Internal Medicine 03/21/25 documented as of this encounter
--- OUTSIDE RECORDS SUMMARY | 2025-08-09 16:02 | XMS_ITS | Encounter Summary ---
Author Organization [employer] Address [address] [place] [address] [place] [address] Care Team Providers Care Title Clerk Name Role Phone Hammad Brady MD Primary Care Provider [phone] Pari Salomon PharmD Unavailable [phone] Reason for Visit * Reason Comments Med Refill Encounter Details Date Type Department Care Team ([facility] st Contact Info) Description 08/03/2025 Refill [facility] MED & PEDS [address] [place], [place] [phone] Hammad Brady MD [address] [place] [address] Gastroesophageal reflux disease, unspecified whether esophagitis present; Hypercholesterolemia; Hypertension, unspecified type Social History Tobacco Use Types Packs/Day Years [...] Description 09/20/2025 2:00 PM EST Medication Management [facility] MED & PEDS [address] [place] [address] Pari Salomon PharmD [address] [place] [address] documented as of this encounter Visit Diagnoses Diagnosis Gastroesophageal reflux disease, unspecified whether esophagitis present Hypercholesterolemia Pure hypercholesterolemia Hypertension, unspecified type documented in this encounter Care Teams Title Clerk Relationship Specialty Start Date End Date Hammad Brady MD [address] [place] [address] PCP - General Internal Medicine 03/23/15 Pari Salomon PharmD [address] [place] [address] Pharmacist Internal Medicine 03/21/25 documented as of this encounter
--- OUTSIDE RECORDS SUMMARY | 2025-08-09 16:02 | XMS_ITS | Clinical Summary ---
Author Organization [employer] Address [address] [facility] 7[address] [place] [address] Care Team Providers Care Car Audio Installer Name Role Phone Hammad Brady MD Primary Care Provider [phone] Pari Salomon PharmD Unavailable [phone] Allergies Active Allergy Reactions Criticality Noted Date Comments Cephalexin Rash High 06/09/2024 Ciprofloxacin Rash High 07/27/2015 Medications * This document contains information received from the source organization and may not represent a complete record from that organization. albuterol (2.5 MG/3ML) 0.083% nebulizer solutionIndicat ions:Mild [...] and replace cap. 16 g 11 024 Active Diclofenac Sodium 1 % gelIndications: Muscle spasm of back To apply to the affected area 4 times a day 100 g 024 Active Ferrous Sulfate (iron) 325 (65 Fe) MG tabletIndicatio ns:Microcytic anemia TAKE ONE TABLET EVERY OTHER DAY IN THE MORNING 15 tablet 11 024 Active gabapentin (Neurontin) 300 MG capsuleIndicati ons:Muscle spasm TAKE ONE CAPSULE EVERY NIGHT AT BEDTIME 30 capsule 11 024 Active montelukast (Singulair) 10 MG tabletIndicatio ns:Mild intermittent asthma without complication TAKE ONE TABLET EVERY EVENING 30 tablet Active pen needle 32G x 5 mm misc USE DAILY 100 each Active Continuous Glucose Sensor (FreeStyle Nilay 3 Plus Sensor) miscIndications :Type 2 diabetes mellitus with hypoglycemia without coma, with long-term current use of insulin ([facility]) 1 each every 15 days. 2 each Active glucose blood (FreeStyle Precision Syed Test) test strip Test blood sugar up to 3 times daily as directed 100 each Active Jardiance 10 MGIndications:T ype 2 diabetes mellitus with hypoglycemia without coma, with long-term current use of insulin ([facility]) TAKE ONE TABLET EVERY MORNING 30 tablet Active Aspirin Adult Low Strength 81 MG EC tablet TAKE ONE TABLET EVERY NIGHT AT BEDTIME 90 tablet Active cholecalciferol VITAMIN D (Vitamin D-3) 50 MCG (2000 UT) capsule TAKE ONE CAPSULE EVERY MORNING 90 capsule Active oxybutynin (Ditropan) 5 MG tabletIndicatio ns:Overactive bladder TAKE ONE TABLET EVERY MORNING 30 tablet Active sertraline (Zoloft) 50 MG tablet TAKE ONE TABLET EVERY MORNING 30 tablet Active albuterol (Ventolin HFA) 108 (90 Base) MCG/ACT inhalerIndicati ons:Seasonal allergies INHALE TWO PUFFS BY MOUTH EVERY 4 TO 6 HOURS NEEDED 18 g Active metFORMIN XR (Glucophage-XR) 500 MG 24 hr tablet TAKE ONE TABLET EVERY EVENING WITH dinner, DO NOT BREAK, CRUSH, DISSOLVE OR CHEW 30 tablet Active Tirzepatide (Mounjaro) 7.5 MG/0.5ML solution auto-injectorIn dications:Type 2 diabetes mellitus with hypoglycemia without coma, with long-term current use of insulin ([facility]) Inject 7.5 mg under the skin 1 (one) time per week. 2 mL 2 Active insulin glargine (Lantus SoloStar) 100 UNIT/ML penIndications: Type 2 diabetes mellitus with hypoglycemia without coma, with long-term current use of insulin ([facility]) INJECT 15 UNITS SUBCUTANEOUSLY AT BEDTIME 15 mL 3 025 Active doxepin (SINEquan) 25 MG capsuleIndicati ons:Anxiety TAKE 1 CAPSULE BY MOUTH AT BEDTIME 30 capsule 11 025 Active omeprazole (PriLOSEC) [address] capsuleIndicati ons:Gastroesoph ageal reflux disease, unspecified whether esophagitis present TAKE ONE CAPSULE EVERY MORNING BEFORE BREAKFAST 90 capsule 1 025 Active atorvastatin (Lipitor) 40 MG tabletIndicatio ns:Hypercholest erolemia TAKE ONE TABLET EVERY NIGHT AT BEDTIME 90 tablet 1 025 Active lisinopril 5 MG tabletIndicatio ns:Hypertension , unspecified type TAKE ONE TABLET EVERY NIGHT AT BEDTIME 90 tablet 1 025 Active doxepin (SINEquan) 25 MG capsuleIndicati ons:Anxiety Take 1 capsule (25 mg) by mouth at bedtime. 30 capsule 11 024 2024 Discontinued(R eorder (will not trigger notification to Pharmacy)) omeprazole (PriLOSEC) [address] capsuleIndicati ons:Gastroesoph ageal reflux disease, unspecified whether esophagitis present TAKE ONE CAPSULE EVERY MORNING BEFORE BREAKFAST 90 capsule 1 025 2024 Discontinued atorvastatin (Lipitor) 40 MG tabletIndicatio ns:Hypercholest erolemia TAKE ONE TABLET EVERY NIGHT AT BEDTIME 90 tablet 1 025 2024 Discontinued lisinopril 5 MG tabletIndicatio ns:Hypertension , unspecified type TAKE ONE TABLET EVERY NIGHT AT BEDTIME 90 tablet 1 025 2024 Discontinued insulin glargine (Lantus SoloStar) 100 UNIT/ML penIndications: Type 2 diabetes mellitus with hypoglycemia without coma, with long-term current use of insulin ([facility]) INJECT 20 UNITS SUBCUTANEOUSLY AT BEDTIME 15 mL 3 025 2024 Discontinued(R eorder (will not trigger notification to Pharmacy)) Tirzepatide (Mounjaro) 5 MG/0.5ML solution auto-injectorIn dications:Type 2 diabetes mellitus with hypoglycemia without coma, with long-term current use of insulin ([facility]) Inject 5 mg under the skin 1 (one) time per week. 2 mL 2 025 2024 Discontinued(D ose adjustment) Active Problems Problem Noted Date Diagnosed Date Chronic kidney disease (CKD) stage G3a/A1, moderately decreased glomerular filtration rate (GFR) between 45-59 mL/min/1.73 square meter and albuminuria creatinine ratio less than 30 mg/g 05/31/2025 Primary hypertension 11/17/2024 Generalized anxiety disorder 11/17/2024 Overactive bladder 12/27/2022 Diabetes mellitus 08/28/2016 Hypercholesterolemia 08/28/2016 Mild persistent asthma 12/01/2015 Encounters Date Type Department Care Team Description 08/04/2025 Results Follow-Up [facility] [address] [place] [address] Imelda Wilson RN Basic Metabolic Panel, Albumin, Random Urine W/Creatinine 08/03/2025 Refill [facility] [address] [place] [address] Hammad Brady MD Gastroesophageal reflux disease, unspecified whether esophagitis present; Hypercholesterolemia; Hypertension, unspecified type 08/02/2025 Orders Only [facility] [address] [place] [address] Hammad Brady MD CKD stage 3a, GFR 45-59 ml/min ([facility]) (Primary Dx) 08/02/2025 Refill [facility] [address] [facility] [place] [address] Hammad Brady MD Anxiety 08/02/2025 Travel 07/05/2025 Refill [facility] [address] [place] [address] Pari Salomon, Nakul Type 2 diabetes mellitus with hypoglycemia without coma, with long-term current use of insulin ([facility]) (Primary Dx) 07/04/2025 Refill [facility] [address] [place] [address] Hammad Brady MD 06/25/2025 Refill [facility] [address] [place] [address] Hammad Brady MD Seasonal allergies 06/17/2025 3:30 PM EDT Office Visit [facility] [address] [place] [address] Hammad Brady MD Type 2 diabetes mellitus with hypoglycemia without coma, with long-term current use of insulin ([facility]) (Primary Dx); Primary hypertension; Encounter for immunization 06/17/2025 Travel 06/07/2025 Telephone [facility] [address] [place] [address] Hammad Brady MD 06/04/2025 Refill [facility] [address] [place] [address] Renate Ochoa MD 05/31/2025 Travel 05/10/2025 Refill [facility] [address] [place] [address] Hammad Brady MD Overactive bladder from Last 3 Months Immunizations Immunization Administration Dates Next Due Influenza High-dose Quadriva lent Preservative Free 10/31/2023,08/24/2020 Influenza Injectable Quadriv alant Preservative Free IIV4 MDCK 10/11/2022 Influenza injectable quadriv alent IIV4 with preservative 09/03/2019,08/31/2018,07/28/2017,08/28 Influenza injectable quadriv alent preservative free 12/25/2021,08/16/2015 Influenza, High Dose Seasona l, Preservative Free 08/02/2025,08/18/2024 Pfizer Covid-19 Vaccine 12+ 10/01/2024 Pfizer Covid-19 Vaccine 12+ Bivalent 08/22/2022 Pneumococcal Conjugate PCV 13 09/03/2019 Pneumococcal Conjugate PCV 20 10/31/2023 Pneumococcal Polysaccharide PPSV23 09/23/1996 TD (adult), 2 Lf tetanus tox oid, preservative free, adsorbed 09/23/2006 Tdap 06/17/2025,06/09/2012 Zoster, Recombinant 01/26/2024,07/21/2023 Zoster, live 03/18/2016 Family [...] Sign Reading Time Taken Comments Blood Pressure 114/72 06/17/2025 3:39 PM EDT Pulse 73 06/17/2025 3:39 PM EDT Temperature 36.8 C (98.2 F) 06/17/2025 3:39 PM EDT Respiratory Rate 20 06/17/2025 3:39 PM EDT Oxygen Saturation 94% 06/17/2025 3:39 PM EDT Inhaled Oxygen Concentration - - Weight 77.1 kg (170 lb) 06/17/2025 3:39 PM EDT Height 147.3 cm (4' 10 ) 06/17/2025 3:39 PM EDT Body Mass Index 35.53 06/17/2025 3:39 PM EDT Plan of Treatment Upcoming Encounters Date Type Department Care Team (Late st Contact Info) Description 09/20/2025 2:00 PM EST Medication Management [facility] [address] [place] [address] Pari Salomon, PharmD [address] [place] [address] Health Maintenance Due Date Last Done Comments CT Colonography 1955 FIT DNA/Cologuard 1955 FIT 1955 FOBT 1955 SDOH Screening 1955 Sigmoidoscopy 1955 Eye Exam 02/29/1964 RSV Patients and Patients Aged 60 years or older (1 - Risk 60-74 years 1-dose series) 2014 Depression Screening 04/16/2024 04/16/2023, 04/16/20 Mammogram 12/17/2024 12/17/2022, 09/11, 02/26/2018 COVID-19 Vaccine ( season) 2025 10/01/2024, 08/22/2022, 09/26/2021, Additional history exists Diabetes: Hemoglobin A1C 08/31/2025 025, 03/07/2025, 08/18/2024, Additional history exists Diabetes: Foot Exam 11/17/2025 11/17/2024, 10/31/2023, 10/31/2023, Additional history exists Alcohol/Substance Use Screening 03/07/2026 03/07/2025 Lipid Panel 03/07/2026 03/07/2025, 07/12, 07/19/2022 Tobacco Screening 06/17/2026 06/17/2025 Diabetes: Urine Protein Screening 08/02/2026 08/02/2025, 07/30/2023, 02/26/2023, Additional history exists Colonoscopy 04/16/2027 04/16/2024 Colorectal Cancer Screening 04/16/2027 DTaP/Tdap/Td Vaccines (3 - Td or Tdap) 06/17/2035 06/17/2025, 06/09/2012, 09/23/2006 Pneumococcal Vaccine: 50+ Years Completed 10/31/2023, 09/03/2019, 09/23/1996 Zoster Vaccines Completed 01/26/2024, 07/11, 03/18/2016 Hepatitis C Screening Completed 03/07/2025 Influenza Vaccine Completed 08/02/2025, , 10/31/2023, Additional history exists HIB Vaccines Aged Out [...] patient's age to complete this topic Meningococcal B Vaccine Aged Out No l onger eligible based on patient's age to complete [...] Procedure Name Priority Date/Time Associated Diagnosis Comments ALBUMIN, RANDOM URINE W/CREATININE Routine 08/02/2025 2:25 PM EDT URINE PROTEIN, TOTAL, RANDOM (W/O CREATININE) Routine 08/02/2025 2:25 PM EDT Type 2 diabetes mellitus with hypoglycemia without coma, with long-term current use of insulin (CMS/HCC) BASIC METABOLIC PANEL Routine 08/02/2025 2:22 PM EDT POCT GLUCOSE Routine 06/17/2025 3:53 PM EDT Type 2 diabetes mellitus with hypoglycemia without coma, with long-term current use of insulin (CMS/[facility]) POCT GLYCATED HEMOGLOBIN, TOTAL Routine 05/31/2025 2:25 PM EDT Type 2 diabetes mellitus with hypoglycemia without coma, with long-term current use of insulin (CMS/HCC) HEPATITIS C AB W/REFL TO HCV RNA, QN, PCR Routine 03/07/2025 9:33 AM EDT Type 2 diabetes mellitus with hypoglycemia without coma, with long-term current use of insulin (CMS/HCC) Hypercholesterolemia LIPID PANEL, STANDARD Routine 03/07/2025 9:33 AM EDT Type 2 diabetes mellitus with hypoglycemia without coma, with long-term current use of insulin (CMS/HCC) Hypercholesterolemia HM COLONOSCOPY Routine 04/16/2024 12:39 PM EDT BI MAMMOGRAM SCREENING TOMOSYNTHESIS BILATERAL Routine 12/17/2022 8:01 AM EST from Last 3 Months or Most Recently Relevant to Health Maintenance Results * (ABNORMAL) Albumin, Random Urine W/Creatinine (08/02/2025 2:25 PM EDT) Creatinine, Urine 64.96 mg/dL [facility] Microalbumin Urine 24.0 mg/L H [facility] Microalbum Creatinine Ratio Ur 36.9(H) <30 ug/mg cr [facility] Comment:Albumin/Creatinine R atio Reference Ranges: Normal: < 30 ug/mg creatinine Microalbuminuria: 30 - 300 ug/mg creatinineClinical Albuminuria: > 300 ug/mg creatinine 08/02/2025 2:25 PM EDT 08/02/2025 6:37 PM EDT us Hammad Brady MD LAB URINE ORDERABLES Final Result Performing Organization Address City/[facility]/ZIP Co de Phone Number [facility] [address] [place] [phone] * Urine Protein, Total, Random without Creatinine (08/02/2025 2:25 PM EDT) Protein, Total, Random Urine 12 <12 mg/dL [facility] Urine Urine specimen obtained by clean catch procedure / Unknown 08/02/2025 2:25 PM EDT 08/02/2025 6:37 PM EDT us Hammad Brady MD LAB URINE ORDERABLES Final Result Performing Organization Address City/[facility]/ZIP Co de Phone Number [facility] [address] [place] [phone] * (ABNORMAL) Basic Metabolic Panel (08/02/2025 2:22 PM EDT) Sodium 140 135 - 145 mmol/L [facility] Potassium 4.6 3.3 - 5.1 mmol/L [facility] Chloride 106 96 - 108 mmol/L [facility] Carbon Dioxide 28 22 - 29 mmol/L [facility] Anion Gap 11(L) 12 - 20 [facility] Urea Nitrogen (BUN) 33(H) 9 - 16 mg/dL [facility] Creatinine, Serum 1.14 0.5 - 1.4 mg/dL [facility] Estimated Glomerular Filt Rate 47 [facility] Comment:Chronic Kidney Disea se: Estimated GFR < 60 mL/min/1.19p1Npvjya Kidney Disease: Estimated GFR < 15 mL/min/1.73m2 Glucose 101 60 - 115 mg/dL [facility] Calcium 9.5 8.4 - 10.2 mg/dL [facility] 08/02/2025 2:22 PM EDT 08/02/2025 6:26 PM EDT us Hammad Brady MD LAB BLOOD ORDERABLES Final Result [facility] [address] [place] [phone] * POCT Glucose (06/17/2025 3:53 PM EDT) Pathologist [facility] Glucose Blood, POC 122 60 - 200 mg/dL QC Media Lot # [id number] Lot# Expiration Date ,934 Comment:random Blood Capillary blood specimen / Unknown 06/17/2025 3:53 PM EDT us Hammad Brady MD POINT OF CARE TEST ENTER/ED IT ORDERABLES Final Result * (ABNORMAL) POCT A1C (05/31/2025 2:25 PM EDT) Pathologist [facility] Hemoglobin A1C 7.0(A) 4.0 - 5.7 % QC Media Lot # [id number] Lot# Expiration Date [id number] Blood 05/31/2025 2:25 PM EDT us Hammad Brady MD POINT OF CARE TEST ENTER/ED IT ORDERABLES Final Result * Hepatitis C Antibody with Reflex to HCV, RNA, Quantitative, Real-Time PCR (03/07/2025 9:33 AM EDT) Hepatitis C Antibody Nonreactive Nonreactive [facility] Comment:Antibodies to HCV no t detected; does not exclude early acuteHCV infection. Blood Venous blood specimen / Unknown 03/07/2025 9:33 AM EDT 03/07/2025 1:59 PM EDT us Hammad Brady MD LAB BLOOD ORDERABLES Final Result [facility] [address] [place] [phone] * (ABNORMAL) Lipid Panel, Standard (03/07/2025 9:33 AM EDT) Triglycerides 113 <150 mg/dL [facility] Comment:Desirable Triglyceri de: less than 150 mg/dLBorderline High Triglyceride 150-199 mg/dLHigh Triglyceride: 200-499 mg/dLVery High Triglyceride: greater than or equal to 5OO mg/dL Cholesterol 142 <200 mg/dL [facility] Comment:Desirable Cholestero l: less than 200 mg/dLBorderline High Cholesterol: 200-239 mg/dLHigh Cholesterol: greater than 239 mg/dL LDL Cholesterol Calculated 83 <100 mg/dL [facility] Comment:Desirable LDL: less than 100 mg/dLNear Optimal/Above Optimal LDL: 110- 129 mg/dLBorderline High LDL: 130-159 mg/dLHigh LDL: 160-189 mg/dLVery High LDL: greater than or equal to 190 mg/dL HDL Cholesterol 37(L) >40 mg/dL [facility] Comment:Desirable HDL: great er than 40 mg/dL Note: This HDL assay may give artificially low results in patients with liver disease. Blood Venous blood specimen / Unknown 03/07/2025 9:33 AM EDT 03/07/2025 1:59 PM EDT Hammad Brady MD LAB BLOOD ORDERABLES Final Result [facility] [address] [place] [phone] * Hm Colonoscopy (04/16/2024 12:39 PM EDT) Historical Provider HEALTH MAINTENANCE Final Result * BI Mammogram Screening Tomosynthesis Bilateral (12/17/2022 8:01 AM EST) Anatomical Region Laterality Modality Breast Bilateral Mammography 12/17/2022 8:01 AM EST Narrative 12/18/2022 4:12 PM EST [address] [place] [address] Mammography Report Signed Patient: Marina Alvarado MR#: [id number] 21 : 1955 Acct:[id number] Age/Sex: 67 / F ADM Date: 12/17/22 Loc: HO.MAMMO Attending Dr: Kevon Soto CNM Ordering Physician: KEVON SOTO CNM Results: 1 Negative Date of Service: 12/17/22 Follow Up: 1 Year From [facility] Mammogram Procedure(s): MM tomosynthesis screening BI Accession Number(s): [id number] cc: KEVON SOTO CNM EXAMINATION: MM SCREENING DIGITAL BREAST [...] in OV> 12/18/22 1609 DD/ 0801 TD/TT: Magnetic Tape Composer Operator: SK Procedure Note Donotuseinterpreter, Image - 12/18/2022 [facility] [address] [place] [address] Mammography Report Signed Patient: Marina Alvarado MMR#: [id number] 21 : 1955cct:[id number] Age/Sex: 67 / FADM Date: 12/17/22 Loc: HO.MAMMO Attending Dr: Kevon Soto CNM Ordering Physician: KEVON SOTOesults: 1 Negative Date of Service: 12/17/22Follow Up: 1 Year From Orig ina Mammogram Procedure(s): MM tomosynthesis screening BI Accession Number(s): [id number] cc: KEVON SOTO CNM EXAMINATION: MM SCREENING DIGITAL BREAST [...] in OV> 12/18/22 1609 DD/ 0801 TD/TT: Magnetic Tape Composer Operator: BRITNEY [facility] External Provider IMG BI PROCEDURES Final Result from Last 3 Months or Most Recently Relevant to Health Maintenance Insurance [facility] MEDICARE REPLACEMENT Care Teams Car Audio Installer Relationship Specialty Start Date End Date Hammad Brady MD [address] [place] [address] PCP - General Internal Medicine 03/23/15 Pari Salomon PharmD [address] [place] [address] Pharmacist Internal Medicine 03/21/25
--- OUTSIDE RECORDS SUMMARY | 2025-08-09 16:02 | XMS_ITS | Encounter Summary ---
Author Organization [employer] Address [address] [place] [address] Care Team Providers Care Crm Technical Lead Name Role Phone Hammad Brady MD Primary Care Provider [phone] Pari Salomon PharmD Unavailable [phone] Encounter Details Date Type Department Care Team ([facility] Contact Info) Description 02/26/2024 Orders Only [facility] [address] [place], [place] [phone] Hammad Brady MD [address] [place] [address] Type 2 diabetes mellitus with hypoglycemia without coma, with long-term current use of insulin ([facility]) (Primary Dx) Social History Tobacco Use [...] Upcoming Encounters Date Type Department Care Team ([facility] Contact Info) Description 09/20/2025 2:00 PM EST Medication Management [facility] [address] [place], [place] [phone] Pari Salomon, PharmD [address] [place] [address] documented as of this encounter Visit Diagnoses Diagnosis Type 2 diabetes mellitus with hypoglycemia without coma, with long-term current use of insulin (HCC)- Primary documented in this encounter Care Teams Crm Technical Lead Relationship Specialty Start Date End Date Hammad Brady MD [address] [place] [phone] PCP - General Internal Medicine 03/23/15 Pari Salomon PharmD [address] [place] [address] Pharmacist Internal Medicine 03/21/25 documented as of this encounter
--- OUTSIDE RECORDS SUMMARY | 2025-08-09 16:02 | XMS_ITS | Encounter Summary ---
Author Organization [employer] Address [address] [facility] [address] [place] [address] Care Team Providers Care Welfare Adviser Name Role Phone Hammad Brady MD Primary Care Provider [phone] Pari Salomon PharmD Unavailable [phone] Encounter Details Date Type Department Care Team ([facility] st Contact Info) Description 06/07/2025 Telephone [facility] [address] [place], [place] [phone] Hammad Brady MD [address] [place] [address] Social History Tobacco Use Types Packs/Day Years [...] encounter Miscellaneous Notes * Telephone Encounter - Carine Mcnamara - 06/07/2025 10:35 AM EDT Tc from pt requesting to speak to Pari in pharmacy regarding concerns with glucose meter. Pt stated she put new on yesterday but it is not giving any readings. Contact pt at [phone] documented in this encounter Plan of Treatment Upcoming Encounters Date Type Department Care Team ([facility] st Contact Info) Description 09/20/2025 2:00 PM EST Medication Management [facility] [address] [place] [address] Pari Salomon PharmD [address] [place] [address] documented as of this encounter Visit Diagnoses Not on filedocumented in this encounter Care Teams Welfare Adviser Relationship Specialty Start Date End Date Hammad Brady MD [address] [place], [place] [phone] PCP - General Internal Medicine 03/23/15 Pari Salomon, PharmD [address] [place], [place] [phone] Pharmacist Internal Medicine 03/21/25 documented as of this encounter
--- OUTSIDE RECORDS SUMMARY | 2025-08-09 16:02 | XMS_ITS | Encounter Summary ---
Author Organization [employer] Address [address] [place] [address] [address] [place] [address] Care Team Providers Care Office Director Name Role Phone Hammad Brady MD Primary Care Provider [phone] Pari Salomon PharmD Unavailable [phone] Encounter Details Date Type Department Care Team ([facility] Contact Info) Description 08/20/2024 Orders Only [facility] [address] [place] [address] Provider, MD Edmundo Social History Tobacco Use Types Packs/Day Years [...] Description 09/20/2025 2:00 PM EST Medication Management [facility] [address] [place] [address] Pari Salomon, PharmD [address] [place], [place] [phone] documented as of this encounter Procedures Procedure Name Priority Date/Time Associated Diagnosis Comments ALBUMIN, RANDOM URINE W/CREATININE Routine 08/02/2025 2:25 PM EDT BASIC METABOLIC PANEL Routine 08/02/2025 2:22 PM EDT HM COLONOSCOPY Routine 04/16/2024 12:39 PM EDT documented in this encounter Results * (ABNORMAL) Albumin, Random Urine W/Creatinine (08/02/2025 2:25 PM EDT) Creatinine, Urine 64.96 mg/dL [facility] Microalbumin Urine 24.0 mg/L H [facility] Microalbum Creatinine Ratio Ur 36.9(H) <30 ug/mg cr [facility] Comment:Albumin/Creatinine R atio Reference Ranges: Normal: < 30 ug/mg creatinine Microalbuminuria: 30 - 300 ug/mg creatinineClinical Albuminuria: > 300 ug/mg creatinine 08/02/2025 2:25 PM EDT 08/02/2025 6:37 PM EDT Hammad Brady MD LAB URINE ORDERABLES Final Result [facility] [address] [place] [phone] * (ABNORMAL) Basic Metabolic Panel (08/02/2025 2:22 PM EDT) Sodium 140 135 - 145 mmol/L [facility] Potassium 4.6 3.3 - 5.1 mmol/L [facility] Chloride 106 96 - 108 mmol/L [facility] Carbon Dioxide 28 22 - 29 mmol/L [facility] Anion Gap 11(L) 12 - 20 [facility] Urea Nitrogen (BUN) 33(H) 9 - 16 mg/dL [facility] Creatinine, Serum 1.14 0.5 - 1.4 mg/dL [facility] Estimated Glomerular Filt Rate 47 [facility] Comment:Chronic Kidney Disea se: Estimated GFR < 60 mL/min/1.81w1Unjrcn Kidney Disease: Estimated GFR < 15 mL/min/1.73m2 Glucose 101 60 - 115 mg/dL [facility] Calcium 9.5 8.4 - 10.2 mg/dL [facility] 08/02/2025 2:22 PM EDT 08/02/2025 6:26 PM EDT us Hammad Brady MD LAB BLOOD ORDERABLES Final Result [facility] [address] [place] [phone] * Hm Colonoscopy (04/16/2024 12:39 PM EDT) us Historical Provider HEALTH MAINTENANCE Final Result documented in this encounter Visit Diagnoses Not on filedocumented in this encounter Care Teams Office Director Relationship Specialty Start Date End Date Hammad Brady MD [address] [place] [id number] PCP - General Internal Medicine 03/23/15 Pari Salomon PharmD [address] [place] [address] Pharmacist Internal Medicine 03/21/25 documented as of this encounter
--- OUTSIDE RECORDS SUMMARY | 2025-08-09 16:02 | XMS_ITS | Encounter Summary ---
Author Organization [employer] Address [address] [place] [address] [address] [place] [address] Care Team Providers Care Poultry Cutter Name Role Phone Hammad Brady MD Primary Care Provider [phone] Pari Salomon PharmD Unavailable [phone] Encounter Details Date Type Department Care Team ([facility] Contact Info) Description 08/04/2025 Results Follow-Up [facility] [address] [place] [address] Imelda Wilson RN Basic Metabolic Panel, Albumin, Random Urine W/Creatinine Social History Tobacco Use Types Packs/Day Years [...] Upcoming Encounters Date Type Department Care Team ([facility] Contact Info) Description 09/20/2025 2:00 PM EST Medication Management [facility] [address] [place] [address] Pari Salomon PharmD [address] [place] [address] documented as of this encounter Visit Diagnoses Not on filedocumented in this encounter Care Teams Poultry Cutter Relationship Specialty Start Date End Date Hammad Brady MD [address] [place] [address] PCP - General Internal Medicine 03/23/15 Pari Salomon PharmD [address] [place] [address] Pharmacist Internal Medicine 03/21/25 documented as of this encounter
--- OUTSIDE RECORDS SUMMARY | 2025-08-09 16:02 | XMS_ITS | Encounter Summary ---
Author Organization [employer] Address [address] [place] [address] Care Team Providers Care Laundry Marker Supervisor Name Role Phone Hammad Brady MD Primary Care Provider [phone] Pari Salomon PharmD Unavailable [phone] Encounter Details Date Type Department Care Team (Late Contact Info) Description 05/30/2023 Orders Only [facility] [address] [place] [address] Devi Garrett LPN Social History Tobacco Use [...] Department Care Team (Late Contact Info) Description 09/20/2025 2:00 PM EST Medication Management [facility] [address] [place], [place] [phone] Pari Salomon, PharmD [address] [place] [address] documented as of this encounter Visit Diagnoses Not on filedocumented in this encounter Care Teams Laundry Marker Supervisor Relationship Specialty Start Date End Date Hammad Brady MD [address] [place], [place] [phone] PCP - General Internal Medicine 03/23/15 Pari Salomon, Nakul [address] [place] [phone] Pharmacist Internal Medicine 03/21/25 documented as of this encounter
--- OUTSIDE RECORDS SUMMARY | 2025-08-09 16:02 | XMS_ITS | Encounter Summary ---
Author Organization [employer] Address [address] [place] [address] [address] [address] Care Team Providers Care Jet Man Name Role Phone Hammad Brady MD Primary Care Provider [phone] Pari Salomon PharmD Unavailable [phone] Reason for Referral * Consultation (Routine) - Authorized Specialty Diagnoses / Procedures Referred By Contac t Referred To Contact Nephrology Diagnoses CKD stage 3a, GFR 45-59 ml/min (CMS/HCC) (HCC) Hammad Brady MD [address] [place] [address] Phone: tel: fax: [facility] [address], [address] [place] [address] Phone: tel: fax: Referral ID Status Reason Start Date Expiration Date Visits Requested Visits Authorized [id number] Authorized Specialty Services Required 08/02/2025 08/02/2026 1 1 * Imaging (Routine) - Authorized Specialty Diagnoses / Procedures Referred By Contac t Referred To Contact Radiology Diagnoses CKD stage 3a, GFR 45-59 ml/min (CMS/HCC) ([facility]) Procedures US RENAL BI Hammad Brady MD [address] [place] [phone] Phone: tel: fax: [facility] [address] [place] [address] Phone: tel: fax: Referral ID Status Reason Start Date Expiration Date V isits Requested Visits Authorized [id number] Authorized 08/02/2025 08/02/2026 1 1 Encounter Details Date Type Department Care Team ([facility] Contact Info) Description 08/02/2025 Orders Only [facility] [address] [place] [address] Hammad Brady MD [address] [place] [address] CKD stage 3a, GFR 45-59 ml/min ([facility]) (Primary Dx) Social History Tobacco Use Types [...] Upcoming Encounters Date Type Department Care Team ([facility] Contact Info) Description 09/20/2025 2:00 PM EST Medication Management [facility] [address] [place] [address] Pari Salomon, PharmD [address] [place] [address] Scheduled Orders Name Type Priority Associated Diagnoses Orde r Schedule US RENAL BI Imaging Routine CKD stage 3a, GFR 45-59 ml/min (CMS/HCC) Expected: 08/02/2025, Expires: 08/02/2026 Scheduled Referrals Name Type Priority Associated Diagnoses Order Schedule Referral to Nephrology Outpatient Referral Routine CKD stage 3a, GFR 45-59 ml/min (CMS/HCC) Expected: 08/02/2025 (Approximate), Expires: 08/02/2026 documented as of this encounter Visit Diagnoses Diagnosis CKD stage 3a, GFR 45-59 ml/min (CMS/HCC) ([facility])- Primary documented in this encounter Care Teams Jet Man Relationship Specialty Start Date End Date Hammad Brady MD [address] [place] [address] PCP - General Internal Medicine 03/23/15 Pari Salomon PharmD [address] [place] [address] Pharmacist Internal Medicine 03/21/25 documented as of this encounter
--- OUTSIDE RECORDS SUMMARY | 2025-08-09 16:02 | XMS_ITS | Encounter Summary ---
Author Organization [employer] Address [address] [place] [address] [address] [place] [address] Care Team Providers Care Type Inspector Name Role Phone Hammad Brady MD Primary Care Provider [phone] Pari Salomon PharmD Unavailable [phone] Encounter Details Date Type Department Care Team (Late Contact Info) Description 07/07/2023 Orders Only [facility] [address] [place], [place] [phone] Elle Moralez LPN Social History Tobacco Use [...] 09/20/2025 2:00 PM EST Medication Management [facility] [address] [place], [place] [phone] Pari Salomon, PharmD [address] [place], [place] [phone] documented as of this encounter Visit Diagnoses Not on filedocumented in this encounter Care Teams Type Inspector Relationship Specialty Start Date End Date Hammad Brady MD [address] [place] [address] PCP - General Internal Medicine 03/23/15 Pari Salomon PharmD [address] [place] [address] Pharmacist Internal Medicine 03/21/25 documented as of this encounter
--- OUTSIDE RECORDS SUMMARY | 2025-08-09 16:02 | XMS_ITS | Encounter Summary ---
Author Organization [employer] Address [address] [place] [address] Care Team Providers Care Wired Sweatband Cutter Name Role Phone Hammad Brady MD Primary Care Provider [phone] Pari Salomon PharmD Unavailable [phone] Reason for Visit * Reason Comments Med Refill Encounter Details Date Type Department Care Team ([facility] Contact Info) Description 12/03/2022 Refill [facility] [address] [place] [address] Hammad Brady MD [address] [place] [address] Social History Tobacco Use Types Packs/Day Years [...] Description 09/20/2025 2:00 PM EST Medication Management [facility] [address] [place] [address] Pari Salomon, PharmD [address] [place] [address] documented as of this encounter Visit Diagnoses Not on filedocumented in this encounter Care Teams Wired Sweatband Cutter Relationship Specialty Start Date End Date Hammad Brady MD [address] [place] [address] PCP - General Internal Medicine 03/23/15 Pari Salomon PharmD [address] [place] [address] Pharmacist Internal Medicine 03/21/25 documented as of this encounter
--- OUTSIDE RECORDS SUMMARY | 2025-08-09 16:02 | XMS_ITS | Encounter Summary ---
Author Organization [employer] Address [address] [place] [address] Care Team Providers Care Animal Cytologist Name Role Phone Hammad Brady MD Primary Care Provider [phone] Pari Salomon PharmD Unavailable [phone] Reason for Visit * Reason Comments Med Refill Encounter Details Date Type Department Care Team (Late st Contact Info) Description 05/30/2023 Refill [facility] [address] [place] [address] Hammad Brady MD [address] [place] [address] Social History Tobacco Use Types Packs/Day Years [...] 09/20/2025 2:00 PM EST Medication Management [facility] [address] [place] [address] Pari Salomon, PharmD [address] [place] [address] documented as of this encounter Visit Diagnoses Not on filedocumented in this encounter Care Teams Animal Cytologist Relationship Specialty Start Date End Date Hammad Brady MD [address] [place] [address] PCP - General Internal Medicine 03/23/15 Pari Salomon PharmD [address] [place] [address] Pharmacist Internal Medicine 03/21/25 documented as of this encounter
--- OUTSIDE RECORDS SUMMARY | 2025-08-09 16:02 | XMS_ITS | Encounter Summary ---
Author Organization [employer] Address [address] [place] [address] Care Team Providers Care Steel Worker Name Role Phone Hammad Brady MD Primary Care Provider [phone]- [phone] Pari Salomon PharmD Unavailable [phone] Reason for Visit * Reason Comments Med Refill Encounter Details Date Type Department Care Team ([facility] Contact Info) Description 12/27/2022 Refill [facility] [address] [place], [place] [phone] Hammad Brady MD [address] [place] [address] Overactive bladder (Primary Dx) Social History Tobacco [...] Upcoming Encounters Date Type Department Care Team ([facility] Contact Info) Description 09/20/2025 2:00 PM EST Medication Management [facility] [address] [place], [place] [phone] Pari Salomon, PharmD [address] [place], [place] [phone] documented as of this encounter Visit Diagnoses Diagnosis Overactive bladder- Primary Hypertonicity of bladder documented in this encounter Care Teams Steel Worker Relationship Specialty Start Date End Date Hammad Brady MD [address] [place] [address] PCP - General Internal Medicine 03/23/15 Pari Salomon, LolitaD [address] [place] [address] Pharmacist Internal Medicine 03/21/25 documented as of this encounter
== END 2025-08-09 15:37 | disposition home or self-care (01) ==
LOC: HO.HKAS 14:38
PROVIDERS: PCP Internal Medicine; Referring Provider Internal Medicine; Visit Provider Internal Medicine Nephrology
DX: N18.31 Chronic kidney disease, stage 3a (principal); E11.21 Type 2 diabetes mellitus with diabetic nephropathy
CPT/HCPCS: 99204

== ENCOUNTER → 2025-08-09 14:37 | Outpatient (BNVA) | payer MEDICARE, SELFPAY | PROVIDERS: PCP Internal Medicine; Referring Provider Internal Medicine; Visit Provider Internal Medicine Nephrology | DX: E11.21 Type 2 diabetes mellitus with diabetic nephropathy (principal); N18.31 Chronic kidney disease, stage 3a | CPT/HCPCS: 99202 ==

== ENCOUNTER 2025-10-13 12:18 | Outpatient (REF) | payer MEDICARE, SELFPAY ==
--- NOTE | ~2025-10-13 | US_ITS ---
EXAMINATION: US KIDNEY BILATERAL HISTORY: CKD stage III TECHNIQUE: Real-time grayscale ultrasound imaging of the kidneys was performed and images were reviewed. COMPARISON: Comparison is made with the prior examination dated 04/13/2019. FINDINGS: Right kidney: The right kidney measures 10.1 x 4.1 x 4.5 cm. Renal parenchymal echotexture and thickness are normal. There are no masses. There is no hydronephrosis or renal calculi. Left Kidney: The left kidney measures 10.8 x 3.9 x 4.7 cm. Renal parenchymal echotexture and thickness are normal. There are no masses. There is a probable extrarenal pelvis. There is no hydronephrosis or renal calculi. US/US renal BI IMPRESSION: Unremarkable renal ultrasound. Electronically signed by: Isaac Boyd MD 10/13/2025 12:52 PM ZANDRA
== END 2025-10-13 12:19 | disposition home or self-care (01) ==
LOC: HO.US 12:18
PROVIDERS: PCP Internal Medicine; Visit Provider Internal Medicine
DX: N18.31 Chronic kidney disease, stage 3a (principal)
CPT/HCPCS: 76775

== ENCOUNTER → 2025-10-13 12:34 | Outpatient (BNV) | payer MEDICARE, SELFPAY | PROVIDERS: PCP Internal Medicine; Visit Provider Radiology Diagnostic Radiology | DX: N18.30 Chronic kidney disease, stage 3 unspecified (principal) | CPT/HCPCS: 76775 ==